=== PATIENT | male | born 1945 | race Caucasian/White ===

== ENCOUNTER 2020-12-14 22:25 | Emergency (ER) | payer MEDICARE, OTHER ==
[~2020-12-14] VITALS: Ht 170.2 cm; Wt 74.8 kg
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
--- NOTE | 2020-12-14 22:44 | NUR ---
EMT @ BEDSIDE FOR EKG
--- NOTE | 2020-12-14 22:44 | NUR ---
MICROSYSTEMS ENGINEER @ BEDSIDE.
[2020-12-14] MEDS ORDERED: TDAP [DIPH/PERTUSSIS/TET] 0.5 ML VIAL IM ONE (22:46)
[2020-12-14 22:57] LABS: BASOPHILS # (AUTO) 0.1 K/uL (0.0-0.2); BASOPHILS % (AUTO) 0.4 % (0.0-2.0); EOSINOPHILS % (AUTO) 0.1 % (0.0-6.0); HEMATOCRIT 44 % (39-51); HEMOGLOBIN 14.3 g/dL (13.5-17.5); LYMPHOCYTES % (AUTO) 14.1 % (20.0-44.0); MEAN CORPUSCULAR HGB CONC 33 g/dl (31.0-36.0); MEAN CORPUSCULAR VOLUME 91 fL (80-96); MONOCYTES # (AUTO) 1.2 K/uL (0.1-1.30); MONOCYTES % (AUTO) 8.6 % (2.0-12.0); NEUTROPHILS # (AUTO) 11.1 K/uL (1.8-8.9); NEUTROPHILS % (AUTO) 76.8 % (43.0-81.0); PLATELET COUNT (AUTO) 236 K/uL (150-450); WHITE BLOOD COUNT (AUTO) 14.4 K/uL (4.3-11.0)
--- NOTE | 2020-12-14 23:05 | NUR ---
URINE COLLECETED AND SENT TO LAB
[2020-12-14] MEDS: TDAP [DIPH/PERTUSSIS/TET] 0.5 ML VIAL IM ONE (23:11)
[2020-12-14 23:16] LABS: ALBUMIN 3.9 g/dL (3.4-5.0); BILIRUBIN,TOTAL 0.4 mg/dL (0.2-1.0); CALCIUM, SERUM 9.1 mg/dL (8.5-10.1); CREATININE 1.9 mg/dL (0.6-1.3); POTASSIUM 4.5 mmol/L (3.5-5.1); TOTAL PROTEIN, SERUM 8.1 g/dL (6.4-8.2)
--- NOTE | 2020-12-14 23:23 | NUR ---
PATIENT TAKEN TO CT
[2020-12-15 03:57] LABS: BILIRUBIN,URINE SMALL (NEGATIVE); COLOR,URINE YELLOW (YELLOW); LEUKOCYTE ESTERASE ,URINE NEGATIVE (NEGATIVE); NITRITE, URINE NEGATIVE (NEGATIVE); PH,URINE 5.5 (5.0-8.0); PROTEIN,URINE TRACE mg/dl (NEGATIVE); UGLUCOSE NEGATIVE (NEGATIVE); UROBILINOGEN,URINE 0.2 EU/dL (0.2)
[2020-12-15 04:03] LABS: BACTERIA,URINE None seen /HPF (None Seen); HYALINE CASTS, URINE Few /LPF (None Seen); MUCUS,URINE Few /LPF (None Seen); SQUAMOUS EPITHELIAL CELL,UR Few /HPF (None Seen); WBC,URINE 0-2 /HPF (0-3)
--- NOTE | 2020-12-15 05:45 | NUR ---
PATIENT A/O X 3, PATIENT AMBULATED WITH UNSTEADY GAIT TO EDGE OF BED AND SAT BACK DOWN. PATIENT PROVIDED WITH FLUIDS PO, TOLERATING WELL. WILL CONTINUE TO MONITOR. VSS.
--- NOTE | 2020-12-15 06:13 | NUR ---
PT IS A, OX3. AMBULATORY W/ STEADY GAITS, PO INTAKE TOLERATED WELL. REPORTED FEELING BETTER AND REQUESTING TO LEAVE. MD MADE AWARE. STABLE FOR D/C PER MD.
--- NOTE | 2020-12-15 06:16 | NUR ---
IV removed. Catheter intact and site benign. Pressure and 4x4 applied to site. No bleeding noted.
--- NOTE | 2020-12-15 06:32 | NUR ---
Patient discharged to home in stable condition. Written and verbal after care instructions given. Patient verbalizes understanding of instruction.
[2020-12-15 06:37] VITALS: BP 122/63
== END 2020-12-15 06:37 | disposition home or self-care (01) ==
LOC: EDBD → ER 22:37
DX: R56.9 Unspecified convulsions (principal); E86.0 Dehydration; F10.129 Alcohol abuse with intoxication, unspecified; Y90.8 Blood alcohol level of 240 mg/100 ml or more
CPT/HCPCS: 36415; 70450; 71045; 80048; 80076; 80307; 80320; 81001; 82962; 85025; 85730; 90471; 90715; 93005; 99285; A6403; G0480

== ENCOUNTER 2020-12-15 12:14 | Emergency (ER) | payer MEDICARE, MEDICAID ==
[~2020-12-15] VITALS: Ht 170.2 cm; Wt 74.8 kg
--- NOTE | 2020-12-15 12:52 | NUR ---
[facility] STATES NO RESIDENT BY THAT NAME
--- NOTE | 2020-12-15 12:54 | NUR ---
CALLED [facility], NO RESIDENT BY THAT NAME
--- NOTE | 2020-12-15 13:01 | NUR ---
REFUSED ACCU CHECK
--- NOTE | 2020-12-15 13:07 | NUR ---
CALLED [facility], NO RECORD OF PATIENT
--- NOTE | 2020-12-15 13:08 | NUR ---
CALLED [facility], NO RECORD OF PATIENT
--- NOTE | 2020-12-15 13:21 | NUR ---
Patient discharged in stable condition. Written and verbal after care instructions given. Patient verbalizes understanding of instruction.
[2020-12-15 13:43] VITALS: BP 131/78
== END 2020-12-15 13:51 | disposition home or self-care (01) ==
LOC: EDBD → ER 12:26
DX: R53.1 Weakness (principal)

== ENCOUNTER 2020-12-16 18:38 | Inpatient (IN) | payer MEDICARE, OTHER ==
[~2020-12-16] VITALS: Ht 170.2 cm; Wt 74.8 kg
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
--- NOTE | 2020-12-17 05:00 | NUR ---
PATINET IN BED SLEEPING, VSS, EASLIY TO AROUSE. WILL CONTINUE TO MONITOR.
[2020-12-17] MEDS ORDERED: LORAZEPAM INJ 2 MG/ML VIAL IVP ONE (08:30)
[2020-12-17] MEDS ORDERED: LORAZEPAM INJ 2 MG/ML VIAL ONE (08:40)
[2020-12-17 08:56] LABS: BASOPHILS % (AUTO) 0.2 % (0.0-2.0); EOSINOPHILS % (AUTO) 0.1 % (0.0-6.0); HEMATOCRIT 41 % (39-51); HEMOGLOBIN 13.9 g/dL (13.5-17.5); LYMPHOCYTES # (AUTO) 1.7 K/uL (0.8-4.8); LYMPHOCYTES % (AUTO) 13.3 % (20.0-44.0); MEAN CORPUSCULAR HGB CONC 34 g/dl (31.0-36.0); MEAN CORPUSCULAR VOLUME 90 fL (80-96); MONOCYTES # (AUTO) 0.9 K/uL (0.1-1.30); MONOCYTES % (AUTO) 6.9 % (2.0-12.0); NEUTROPHILS % (AUTO) 79.5 % (43.0-81.0); PLATELET COUNT (AUTO) 249 K/uL (150-450); RED BLOOD CELL COUNT(AUTO) 4.58 MIL/uL (4.5-6.0); WHITE BLOOD COUNT (AUTO) 12.6 K/uL (4.3-11.0)
--- NOTE | 2020-12-17 08:56 | NUR ---
MOVE SHEET SUBMITTED AND CALLED FOR TELE BED.
[2020-12-17 08:59] LABS: BILIRUBIN,URINE NEGATIVE (NEGATIVE); COLOR,URINE YELLOW (YELLOW); LEUKOCYTE ESTERASE ,URINE NEGATIVE (NEGATIVE); NITRITE, URINE NEGATIVE (NEGATIVE); PH,URINE 5.5 (5.0-8.0); PROTEIN,URINE 30 mg/dl (NEGATIVE); UGLUCOSE NEGATIVE (NEGATIVE); UROBILINOGEN,URINE 0.2 EU/dL (0.2)
[2020-12-17] MEDS ORDERED: IV D5/0.45 NACL 1,000 ML IV ONE (09:00)
[2020-12-17] MEDS ORDERED: Thiamine 100 MG in IV D5W 50 ML IV SCH ×2 (09:00→12:00)
[2020-12-17 09:12] LABS: CALCIUM, SERUM 8.4 mg/dL (8.5-10.1); CARBON DIOXIDE 19 mmol/L (21-32); CHLORIDE 101 mmol/L (98-107); CREATININE 1.9 mg/dL (0.6-1.3); GLUCOSE 174 mg/dL (74-106); POTASSIUM 4.6 mmol/L (3.5-5.1); SODIUM SERUM 137 mmol/L (136-145); UREA NITROGEN, BLOOD 49 mg/dL (7-18)
[2020-12-17 09:15] LABS: BACTERIA,URINE Rare /HPF (None Seen); SQUAMOUS EPITHELIAL CELL,UR Few /HPF (None Seen); WBC,URINE 0-2 /HPF (0-3)
[2020-12-17 09:17] LABS: ALANINE AMINOTRANSFERASE 37 U/L (12-78); ALBUMIN 3.5 g/dL (3.4-5.0); ALCOHOL, BLOOD 45 mg/dL (0-0); ALKALINE PHOSPHATASE 78 U/L (46-116); ASPARTATE AMINOTRANSFERASE 75 U/L (15-37); BILIRUBIN,DIRECT 0.1 mg/dL (0.0-0.2); BILIRUBIN,TOTAL 0.5 mg/dL (0.2-1.0); TOTAL PROTEIN, SERUM 7.7 g/dL (6.4-8.2)
--- NOTE | 2020-12-17 09:50 | NUR ---
covid swab collected and sent to lab.
--- NOTE | 2020-12-17 10:20 | NUR ---
PT GOING TO TELE 111.1
--- NOTE | 2020-12-17 11:13 | NUR ---
REPORT GIVEN TO HEATHER SUTHERLAND FOR JACLYN.
[2020-12-17] MEDS ORDERED: ZOLPIDEM TARTRATE 5 MG TABLET PO PRN (11:30)
[2020-12-17] MEDS ORDERED: Z GUARD REMEDY 2 OZ OINT TP PRN (11:30)
[2020-12-17] MEDS ORDERED: MAG HYDROX/AL HYDROX/SIMETH 30 ML UDC PO PRN (11:30)
[2020-12-17] MEDS ORDERED: MAGNESIUM HYDROXIDE 30 ML UDC PO PRN (11:30)
[2020-12-17] MEDS ORDERED: LORAZEPAM INJ 2 MG/ML VIAL IV PRN (11:30)
[2020-12-17] MEDS ORDERED: ACETAMINOPHEN 325 MG TABLET PO PRN (11:30)
[2020-12-17] MEDS ORDERED: ONDANSETRON HCL/PF 4 MG/2 ML VIAL IVP PRN (11:30)
--- NOTE | 2020-12-17 12:33 | NUR ---
wheeled patient via gurney accompanied by RN and emt in no distress. RN assigned at bedside to assume care.
--- NOTE | 2020-12-17 13:30 | NUR ---
Patient arrived via bed from ER around 1330. Patient AO X 4, able to make needs known, can follow simple commands, no apparent distress noted, breathing even and unlabored. Admitting hospitalist made aware of the patient's arrival. Patient admitting diagnosis ETOH intoxication. Patient's vital signs within normal limits, no complained of facial numbness or weakness, no extremity numbness or weakness at this time. Skin intact, warm to touch, no pallor or cyanosis noted. Patient oriented with use of call lights, use of bed control, use of telephone and tv control, also introduces ENAMEL MACHINE OPERATOR and RN assigned for today, verbalized understanding and gratitude. All belongings written in the inventory list. All needs attended, kept clean and dry, call light left within reach, safety precautions in place, brakes locked, side rails up X 2, will monitor closely for any changes.
[2020-12-17] MEDS: IV NS 0.9% 1,000 ML IV PRN (14:02)
[2020-12-17 17:00] VITALS: BP 116/60
[2020-12-17] MEDS: CHLORDIAZEPOXIDE HCL 25 MG CAPSULE PO SCH (18:03)
--- NOTE | 2020-12-17 18:39 | NUR ---
RN CLOSING NOTES Patient lying in bed, AO X 3-4, respirations even and unlabored, no SOB, no apparent distress noted, denies any pain or discomfort, no s/s of alcohol withdrawal at this time. All medications given per MD order with sips of water, tolerating well. Patient is on NPO diet per MD order, no s/s of hypoglycemia, no change in LOC, no tremors, denies any abdominal pain o discomfort, abdominal bowel sounds present in all quadrants, no grimacing when abdomen palpated. Call light left within reach, kept clean and dry, all needs anticipated, safety precautions in place, brakes locked, side rails up X 2, will endorse to next shift for continuity of care.
--- NOTE | 2020-12-17 19:00 | NUR ---
RN OPENING NOTES RECEIVED REPORT FROM MORNING NURSE. PATIENT IN BED A/O X4. WITH OXYGEN INHALATION @ 3LPM VIA NASAL CANULA SATURATION OF 98%. NO SOB, NO DISTRESS NOTED AT THIS TIME.ON INCIDENT RESPONSE SPECIALIST WITH NORMAL SINUS RHYTHM. WITH IV ACCESS AT AMY G #18 PATENT FLUSHEST WELL NO INFILTRATION NOTED. WITH ONGOING IVF OF PNS @125CC/HR. STILL NPO EXCEPT MEDS. VITAL SIGNS TAKEN AND RECORDED.SAFETY MEASURES IN PLACE AT ALL TIMES, HOB ELEVATED, BED ON LOWEST POSITION AND LOCKED. CALL LIGHT WITHIN REACH. WILL CONTINUE TO MONITOR CLOSELY.
[2020-12-17 21:00] VITALS: BP 102/62
[2020-12-18] VITALS (7 sets, daily range): BP systolic 105–130; BP diastolic 64–80
[2020-12-18] MEDS: IV NS 0.9% 1,000 ML IV PRN (01:24)
[2020-12-18] MEDS ORDERED: DEXTROSE 50%-WATER 50 ML DISP.SYRIN IV PRN (03:00)
--- NOTE | 2020-12-18 05:29 | NUR ---
RN NOTES PATIENT IS CONGESTED SATURATION 95% ON 3L VIA NC. ANAHI SWITCH ENGINEER INFORMED WITH NNO AT THIS TIME.
--- NOTE | 2020-12-18 05:31 | NUR ---
RN NOTES NOTED ANAHI PERSAUD DISCONTINUED IVF PNS. WILL CONTINUE TO MONITOR
[2020-12-18] MEDS: BLOOD SUGAR DIAGNOSTIC 1 EACH STRIP IN SCH ×3 (05:52→17:04)
[2020-12-18 06:30] LABS: BASOPHILS % (AUTO) 0.3 % (0.0-2.0); EOSINOPHILS % (AUTO) 1.7 % (0.0-6.0); HEMATOCRIT 37 % (39-51); HEMOGLOBIN 12.6 g/dL (13.5-17.5); LYMPHOCYTES # (AUTO) 1.3 K/uL (0.8-4.8); MEAN CORPUSCULAR HGB CONC 34 g/dl (31.0-36.0); MEAN CORPUSCULAR VOLUME 90 fL (80-96); MONOCYTES # (AUTO) 0.8 K/uL (0.1-1.30); MONOCYTES % (AUTO) 10.6 % (2.0-12.0); NEUTROPHILS # (AUTO) 5.2 K/uL (1.8-8.9); NEUTROPHILS % (AUTO) 69.4 % (43.0-81.0); PLATELET COUNT (AUTO) 172 K/uL (150-450); RED BLOOD CELL COUNT(AUTO) 4.15 MIL/uL (4.5-6.0); WHITE BLOOD COUNT (AUTO) 7.4 K/uL (4.3-11.0)
--- NOTE | 2020-12-18 06:51 | NUR ---
RN CLOSING NOTES PATIENT IN BED. NO SOB, NO DISTRESS, NO PAIN NOTED AT THIS SHIFT. WITH OXYGEN INHALATION AT 3LPM VIA NC SATURATION OF 95%. WITH IV ACCESS AT AMY G#18 PATENT FLUSHES WELL NO INFILTRATION NOTED.M ON FBI INVESTIGATOR WITH SR AT 80'S. PATIENT STILL ON NPO EXCEPT MEDS. SAFETY MEASURE IN PLACE AT ALL TIMES, HOB ELEVATED, SIDERAILS UP FOR SAFETY, BED ON LOWEST POSITION AND LOCKED. CALL LIGHT WITHIN REACH. NO EPISODE OF ETOH WIDRAWAL THIS SHIFT. ENDORSED.
--- NOTE | 2020-12-18 07:48 | NUR ---
RN OPENING NOTES Patient is awake, alert and oriented x 4, no respiratory distress, no SOB. On 3 liters via NC. Sinus rhythm. NPO except meds. Safety precautions implemented, bed locked in lowest position, call light within reach.
[2020-12-18 08:07] LABS: ALBUMIN 2.9 g/dL (3.4-5.0); BILIRUBIN,DIRECT 0.2 mg/dL (0.0-0.2); BILIRUBIN,TOTAL 0.6 mg/dL (0.2-1.0); CALCIUM, SERUM 7.8 mg/dL (8.5-10.1); CREATININE 1.2 mg/dL (0.6-1.3); MAGNESIUM 2.2 mg/dL (1.8-2.4); PHOSPHORUS 1.8 mg/dL (2.5-4.9); TOTAL PROTEIN, SERUM 6.4 g/dL (6.4-8.2)
[2020-12-18] MEDS: PANTOPRAZOLE 40 MG VIAL IV SCH (08:07)
[2020-12-18] MEDS: CHLORDIAZEPOXIDE HCL 25 MG CAPSULE PO SCH ×2 (08:10→17:03)
[2020-12-18] MEDS: FUROSEMIDE 20 MG/2 ML VIAL IV SCH (08:10)
[2020-12-18] MEDS: THIAMINE HCL 100 MG TABLET PO SCH (09:30)
[2020-12-18] MEDS: HYDROMORPHONE INJ 2 MG/ML DISP.SYRIN IV PRN (09:31)
[2020-12-18] MEDS ORDERED: K PHOS NEUTRAL 250 MG TABLET PO ONE (12:00)
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
[2020-12-18] MEDS: INSULIN REGULAR, HUMAN 100 UNIT/ML 3 ML VIAL SQ PRN (17:10)
--- NOTE | 2020-12-18 18:48 | NUR ---
RN CLOSING NOTE Patient is awake, alert and oriented x 4, no respiratory distress, no SOB. Sinus rhythm. No s/sx of withdrawal episodes noted. Safety precautions implemented, bed locked in lowest position, call light within reach.
--- NOTE | 2020-12-18 19:30 | NUR ---
RN NOTE PT RECEIVED IN BED. PT IS ON 3L OF O2 VIA NC SHOWING NO S/S OF RESP DISTRESS. BREATHING EVEN AND UNLABORED. PT IS A/OX4. NSR ON TELE MONITOR. PT IS AMBULATORY. IV ACCESS NOTED ON LEFT UPPER ARM #18. LINE FLUSHED, PATENT, AND INTACT WITH NO SIGNS OF INFILTRATION. ALL SAFETY MEASURES IMPLEMENTED. CALL LIGHT WITHIN REACH. BED ALARM ON. BED LOCKED AND IN LOWEST POSITION. WILL CONTINUE TO MONITOR AND ASSESS FOR ANY CHANGES.
--- NOTE | 2020-12-18 20:15 | NUR ---
RN NOTE PT HAS MILD FEVER OF 100.3. TYLENOL 650 MG ADMINISTERED AND COOLING MEASURES PROVIDED. WILL CONTINUE TO MONITOR AND RE-ASSESS PT.
--- NOTE | 2020-12-18 21:15 | NUR ---
RN NOTE RE-ASSESSED PT AFTER ADMINISTRATION OF TYLENOL AND COOLING MEASURES. PT TEMPERATURE NOW 99.2. WILL CONTINUE TO MONITOR.
--- NOTE | 2020-12-18 21:35 | NUR ---
RN NOTE REPORT GIVEN TO KOKO SCHUMACHER FOR JACLYN.
--- NOTE | 2020-12-18 22:12 | NUR ---
RN NOTE PT TRANSFERRED TO 328-2 FOR JACLYN.
--- NOTE | 2020-12-18 22:56 | NUR ---
RECEIVED PT @2205 VIA BED ACCOMPANIED BY 2 PERSONNEL. PATIENT IS STABLE. VITAL SIGNS FOLLOW: 105/64, 97.9, 95% O2 SATURATION, 95 BPM, AND 18 RESPIRATIONS. Addendum: 12/19/20 at 0635 by CORBY PERALES RN PT IS AOx3-4. ABLE TO MAKE NEEDS KNOWN. ON 3L/MIN VIA NC AND TOLERATING WELL. NO SOB NOTED. NO S/SX OF RESPIRATORY DISTRESS NOTED.TELE MONITOR DETECTS SINUS RHYTHM WITH RATE OF 85. IV ACCESS IN AMY MIDLINE #18G. SAFETY PRECAUTIONS IN PLACE: BED IN LOWEST, LOCKED POSITION, SIDERAILS UPx2, BRAKES ON. TABLE AND CALL LIGHT WITHIN REACH.
[2020-12-19] MEDS: BLOOD SUGAR DIAGNOSTIC 1 EACH STRIP IN SCH ×4 (00:10→17:40)
--- NOTE | 2020-12-19 06:43 | NUR ---
TONGUE PRESSER CLOSING NOTES PT IN BED, ASLEEP, AWAKENS TO VERBAL STIMULI. PT IS AOx3-4. ABLE TO MAKE NEEDS KNOWN. ON 3L/MIN VIA NC AND TOLERATING WELL. NO SOB NOTED. NO S/SX OF RESPIRATORY DISTRESS NOTED.TELE MONITOR DETECTS SINUS RHYTHM WITH RATE OF 85. IV ACCESS IN AMY MIDLINE #18G. ALL NEEDS MET. PT KEPT CLEAN AND DRY. SAFETY PRECAUTIONS IN PLACE: BED IN LOWEST, LOCKED POSITION, SIDERAILS UPx2, BRAKES ON. TABLE AND CALL LIGHT WITHIN REACH. WILL ENDORSE TO ONCOMING SHIFT FOR JACLYN.
--- NOTE | 2020-12-19 07:30 | NUR ---
BORING MACHINE OPERATOR OPENING NOTES RECEIVED PATIENT ON BED, AWAKE AND AOx3-4. ABLE TO MAKE NEEDS KNOWN. ON 3L/MIN VIA NC AND TOLERATING WELL. NO SOB NOTED. NO S/SX OF RESPIRATORY DISTRESS NOTED. ON TELE MONITOR CURRENTLY READING SINUS RHYTHM AT 80BPM . SAFETY PRECAUTIONS IN PLACE: BED IN LOWEST, LOCKED POSITION, SIDE RAILS UPx2, BRAKES ON. TABLE AND CALL LIGHT WITHIN REACH. WILL CONTINUE TO MONITOR.
[2020-12-19 08:06] LABS: ALBUMIN 2.9 g/dL (3.4-5.0); BILIRUBIN,TOTAL 0.5 mg/dL (0.2-1.0); CALCIUM, SERUM 8.3 mg/dL (8.5-10.1); CREATININE 1.1 mg/dL (0.6-1.3); PHOSPHORUS 2.3 mg/dL (2.5-4.9); POTASSIUM 3.4 mmol/L (3.5-5.1); TOTAL PROTEIN, SERUM 7.2 g/dL (6.4-8.2)
[2020-12-19] MEDS: CHLORDIAZEPOXIDE HCL 25 MG CAPSULE PO SCH ×2 (08:12→17:35)
[2020-12-19] MEDS: FUROSEMIDE 20 MG/2 ML VIAL IV SCH (08:12)
[2020-12-19] MEDS: PANTOPRAZOLE 40 MG VIAL IV SCH (08:12)
[2020-12-19] MEDS ORDERED: PANTOPRAZOLE 40 MG TABLET.DR PO SCH (09:00)
[2020-12-19] MEDS ORDERED: POTASSIUM CHLORIDE 20 MEQ TAB.PRT.SR PO SCH (09:30)
[2020-12-19 09:37] VITALS: BP 113/76
[2020-12-19] MEDS: THIAMINE HCL 100 MG TABLET PO SCH (09:40)
[2020-12-19] MEDS: HYDROMORPHONE INJ 2 MG/ML DISP.SYRIN IV PRN (09:58)
[2020-12-19] MEDS ORDERED: K PHOS NEUTRAL 250 MG TABLET PO ONE (10:00)
[2020-12-19 12:00] VITALS: BP 108/73
[2020-12-19 16:00] VITALS: BP 96/73
[2020-12-19] MEDS: INSULIN REGULAR, HUMAN 100 UNIT/ML 3 ML VIAL SQ PRN (17:34)
--- NOTE | 2020-12-19 18:14 | NUR ---
RN NOTES CALLED [facility] AT [phone] AND GAVE REPORT FOR THE PATIENT TO BE DISCHARGE TO THEIR FACILITY TO NURSE RUBIO.
--- NOTE | 2020-12-19 18:44 | NUR ---
CORE CUTTER AND REAMER CLOSING NOTES PATIENT ON BED, AWAKE AND AO x3-4. ABLE TO MAKE NEEDS KNOWN. ON ROOM AIR TOLERATING WELL. NO SOB NOTED. NO S/SX OF RESPIRATORY DISTRESS NOTED. ON TELE MONITOR CURRENTLY READING SINUS RHYTHM AT 84BPM . SAFETY PRECAUTIONS IN PLACE: BED IN LOWEST, LOCKED POSITION, SIDE RAILS UPx2, BRAKES ON. TABLE AND CALL LIGHT WITHIN REACH. FOR DISCHARGE TO [facility]. REPORT ALREADY GIVEN TO NURSE RUBIO AT [facility]. WILL ENDORSE TO NEXT SHIFT FOR JACLYN.
--- NOTE | 2020-12-19 19:56 | NUR ---
PIZZA DRIVER OPENING NOTES PT AOx3. ABLE TO MAKE NEEDS KNOWN. ON 3L/MIN VIA NASAL CANNULA AND TOLERATING WELL. NO S/SX OF RESPIRATORY DISTRESS NOTED. NO SOB NOTED. IV ACCESS IN AMY #18G. IV IS INTACT, PATENT, AND FLUSHING WELL. SAFETY PRECAUTIONS IN PLACE. TABLE AND CALL LIGHT WITHIN REACH. WILL CONTINUE TO MONITOR. DISCHARGE NOTES PATIENT LEFT WITH 2 EMT'S VIA [employer] [facility]. ID BAND REMOVED. IV REMOVED. TELE MONITOR REMOVED. EDUCATION PROVIDED. DISCHARGE AND BELONGINGS LIST SIGNED. VITAL SIGNS FOLLOW 111/58, 16 RESPIRATION, 89 BPM, 95% AND 99.2 DEGREE.
== END 2020-12-19 20:00 | DRG 896 ==
LOC: ER 18:41 → EDBD 12-17 10:43 → TELE1 12-17 10:43 → TELE 12-18 21:57
PROVIDERS: ADMIT Nurse Practitioner Acute Care; ATTEND Hospitalist
DX: F10.129 Alcohol abuse with intoxication, unspecified (principal); K85.90 Acute pancreatitis without necrosis or infection, unspecified; N17.0 Acute kidney failure with tubular necrosis; G92.8 Other toxic encephalopathy; Y90.2 Blood alcohol level of 40-59 mg/100 ml; Z59.00 Homelessness unspecified; Z86.73 Personal history of transient ischemic attack (TIA), and cerebral infarction without residual deficits; Z20.822 Contact with and (suspected) exposure to COVID-19; E16.2 Hypoglycemia, unspecified; I67.2 Cerebral atherosclerosis; R56.9 Unspecified convulsions
CPT/HCPCS: 36415; 70450-TC; 71045-TC; 80048-TC; 80053-TC; 80061-TC; 80076-TC; 81001; 82962-TC; 83690-TC; 83735-TC; 84100-TC; 85025-TC; 85730-TC; 87081-TC; 97112-TC; 97530-TC; C9113; C9803; G0378; G0480; J1170; J1815; J1940; J2060; J3411; J3490; J7030; J7042; J7060

== ENCOUNTER 2021-01-13 17:50 | Emergency (ER) | payer MEDICARE, OTHER ==
[~2021-01-13] VITALS: Ht 170.2 cm; Wt 74.8 kg
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
--- NOTE | 2021-01-13 18:03 | NUR ---
EMT AT BEDSIDE FOR WOUND CARE
[2021-01-13] MEDS ORDERED: ACET325C7 PO (18:26)
--- NOTE | 2021-01-13 18:42 | NUR ---
REPORT GIVEN TO [facility] THAT PATIENT IS COMING BACK, SPOKE TO SCOTT
[2021-01-13] MEDS ORDERED: BACI1OIN8 TP (18:43)
--- NOTE | 2021-01-13 18:45 | NUR ---
TRANSPORT BACK TO HIS FACILITY IS SCHEDULED FOR 2029 VIA [facility].
--- NOTE | 2021-01-13 21:22 | NUR ---
PT LEFT ON GURNEY WITH 2 EMT AT BEDSIDE ON STABLE CONDITION. PT IS AMBULATORY ON STEADY GAIT.
[2021-01-13 21:23] VITALS: BP 143/86
== END 2021-01-13 21:23 | disposition home or self-care (01) ==
LOC: ER 17:54
DX: S50.812A Abrasion of left forearm, initial encounter (principal); W25.XXXA Contact with sharp glass, initial encounter; Y93.89 Activity, other specified; Y92.89 Other specified places as the place of occurrence of the external cause; Y99.8 Other external cause status
CPT/HCPCS: 99283; A6403

== ENCOUNTER 2021-03-23 13:28 | Emergency (ER) | payer MEDICARE, OTHER ==
[~2021-03-23] VITALS: Ht 180.3 cm; Wt 78.9 kg
[~2021-03-23 13:28] MED LIST: ACET325C7 PO; BACI1OIN8 TP
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
--- NOTE | 2021-03-23 13:50 | NUR ---
PARTNERSHIP MANAGER AT BEDSIDE FOR XRAY.
[2021-03-23] MEDS ORDERED: NAPROXEN 250 MG TABLET PO ONE (14:00)
[2021-03-23] MEDS ORDERED: NAPROXEN 250 MG TABLET ONE (14:04)
[2021-03-23] MEDS ORDERED: NAPR-1192 PO (14:32)
--- NOTE | 2021-03-23 14:36 | NUR ---
CALLED [facility] AND SET UP BLS TRANSPORT TO [facility] ETA 1530
[2021-03-23 15:09] VITALS: BP 142/72
--- NOTE | 2021-03-23 15:09 | NUR ---
REPORT GIVEN TO EMT FOR PT TRANSFER BACK TO [facility].
== END 2021-03-23 15:10 | disposition home or self-care (01) ==
LOC: ER 13:36
DX: S93.401A Sprain of unspecified ligament of right ankle, initial encounter (principal); R56.9 Unspecified convulsions; I10 Essential (primary) hypertension; Z79.1 Long term (current) use of non-steroidal anti-inflammatories (NSAID); Z79.899 Other long term (current) drug therapy; X58.XXXA Exposure to other specified factors, initial encounter; Y93.89 Activity, other specified; Y92.89 Other specified places as the place of occurrence of the external cause; Y99.8 Other external cause status
CPT/HCPCS: 73610-TC; 73630-TC

== ENCOUNTER 2021-05-03 08:48 | Inpatient (IN) | payer MEDICARE, OTHER ==
[~2021-05-03] VITALS: Ht 170.2 cm; Wt 77.1 kg
[~2021-05-03 08:48] MED LIST changes: +NAPR-1192 PO
--- NOTE | 2021-05-03 09:15 | NUR ---
ON AND OFF CP. CP NOW IS 3/10 TIGHTNESS. NON RADIATING. DENIES N/V. IV ACCESS PEST CONTROLLER ASSISTANT, BUT INFILTRATED. PLACED NEW ACCESS ON R AC #20G, INTACT AND PATENT.
[2021-05-03 10:00] LABS: BASOPHILS # (AUTO) 0.1 K/uL (0.0-0.2); EOSINOPHILS % (AUTO) 0.3 % (0.0-6.0); HEMATOCRIT 41 % (39-51); HEMOGLOBIN 13.6 g/dL (13.5-17.5); LYMPHOCYTES # (AUTO) 0.4 K/uL (0.8-4.8); LYMPHOCYTES % (AUTO) 4.7 % (20.0-44.0); MEAN CORPUSCULAR HGB CONC 33 g/dl (31.0-36.0); MEAN CORPUSCULAR VOLUME 89 fL (80-96); MONOCYTES # (AUTO) 0.4 K/uL (0.1-1.30); MONOCYTES % (AUTO) 5.6 % (2.0-12.0); NEUTROPHILS # (AUTO) 7.1 K/uL (1.8-8.9); NEUTROPHILS % (AUTO) 88.4 % (43.0-81.0); PLATELET COUNT (AUTO) 134 K/uL (150-450); RED BLOOD CELL COUNT(AUTO) 4.64 MIL/uL (4.5-6.0)
[2021-05-03 10:34] LABS: CARBON DIOXIDE 25 mmol/L (21-32); CHLORIDE 99 mmol/L (98-107); CREATININE 1.2 mg/dL (0.6-1.3); GLUCOSE 138 mg/dL (74-106); SODIUM SERUM 139 mmol/L (136-145); UREA NITROGEN, BLOOD 23 mg/dL (7-18)
--- NOTE | 2021-05-03 10:35 | NUR ---
MOVE SHEET SUBMITTED AND CALLED FOR TELE BED.
--- NOTE | 2021-05-03 10:36 | NUR ---
COVID TEST DONE. SPECIMEN WAS SENT TO THE LAB
[2021-05-03] MEDS ORDERED: ATOR40TA PO (11:09)
[2021-05-03] MEDS ORDERED: POLY17PO4 PO (11:09)
[2021-05-03] MEDS ORDERED: DOCU-270 PO (11:09)
[2021-05-03] MEDS ORDERED: OMEP20CA15 PO (11:09)
[2021-05-03] MEDS ORDERED: CALC-494 PO (11:09)
--- NOTE | 2021-05-03 12:16 | NUR ---
[facility] CALLED MEAT CUTTING TEACHER PAGED.
--- NOTE | 2021-05-03 13:32 | NUR ---
[facility] CALLED WOOD PRODUCTS MANUFACTURER PAGED AGAIN.
--- NOTE | 2021-05-03 14:20 | NUR ---
GAVE REPORT TO NOAM Moore RN, FOR JACLYN.
--- NOTE | 2021-05-03 14:41 | NUR ---
PATIENT WAS BROUGHT UP TO 327-1, STABLE
--- NOTE | 2021-05-03 14:45 | NUR ---
TELE ADMISSION NOTE PT WAS BROUGHT UP FROM ED BY VERNA ED RN. PT WITH STABLE VITALS. A/A/O X 4. NO S/SX OF ACURE DISTRESS NOTED. NO SOB. BREATHING IS EVEN AND UNLABORED. ORIENTED PT TO UNIT, STAFF AND CALL LIGHT. IV ACCESS RAC#20 PATENT AND INTACT. PT PLACED ON EXTERNAL COMPLAINT ADJUSTER WITH SINUS READING. SAFETY MEASURES IN PLACE WITH BED LOCKED IN LOW POSITION WITH SIDE RAILS UP X 2. CALL LIGHT AND BED SIDE TABLE WITHIN REACH. WILL MONITOR THROUGHOUT SHIFT.
[2021-05-03 16:00] VITALS: BP 137/90
--- NOTE | 2021-05-03 18:16 | NUR ---
RN NOTE ADMITTING DOCTOR, DR. SHIRA BARNETT, MADE AWARE TO INPUT ADMITTING ORDERS AND MEDICATION RECONCILIATION.
--- NOTE | 2021-05-03 18:44 | NUR ---
SCROLL MACHINE OPERATOR CLOSING NOTE PT IS IN BED AWAKE. NO S/SX OF ACUTE DISTRESS NOTED. NO SOB. BREATHING IS EVEN AND UNLABORED.NO C/O PAIN. IV ACCESS RAC#20 PATENT AND INTACT. PT PLACED ON EXTERNAL LADIES ATTENDANT WITH SINUS READING 94. DR. SHIRA BARNETT MADE AWARE TO INPUT ADMITTING ORDERS. SAFETY MEASURES IN PLACE WITH BED LOCKED IN LOW POSITION WITH SIDE RAILS UP X 2. CALL LIGHT AND BED SIDE TABLE WITHIN REACH. WILL ENDORSE CONTINUITY OF CARE TO ONCOMING SHIFT.
[2021-05-03 20:00] VITALS: BP 134/77
[2021-05-03] MEDS ORDERED: ONDANSETRON HCL/PF 4 MG/2 ML VIAL IVP PRN (20:00)
[2021-05-03] MEDS ORDERED: ACETAMINOPHEN 325 MG TABLET PO PRN (20:00)
[2021-05-03] MEDS ORDERED: Z GUARD REMEDY 4 OZ OINT TP PRN (20:00)
--- NOTE | 2021-05-03 20:16 | NUR ---
RN BONE MARROW TRANSPLANT CLOSING NOTES: RECEIVED PATIENT SLEEP IN BED, AROUSABLE TO VERBAL STIMULI, BED IN LOW POSITION CALL LIGHTS WITHIN REACH, NO COMPLAIN OF PAIN AND DISCOMFORT ON ROOM AIR SATURATING WELL, ON TELE MONITOR SR-94 NO SYMPTOMS WAS OBSERVED, WITH IV LINE AT RAC#20 WITH ONGOING NSS @75 ML PER HOUR, PATIENT KEPT CLEAN AND DRY ALL NEEDS MET WILL CONTINUE TO MONITOR
[2021-05-03] MEDS: ENOXAPARIN SODIUM 40 MG/0.4 ML DISP.SYRIN SQ SCH (20:36)
[2021-05-03] MEDS: IV NS 0.9% 1,000 ML IV PRN (20:37)
[2021-05-03] MEDS: ATORVASTATIN 40 MG TABLET PO SCH (22:06)
[2021-05-04] VITALS: BP 138/73
[2021-05-04 04:00] VITALS: BP 156/95
--- NOTE | 2021-05-04 06:19 | NUR ---
SANDBLAST OR SHOTBLAST EQUIPMENT TENDER CLOSING NOTES: PATIENT SLEEP IN BED COMFORTABLY, BED IN LOW POSITION, CALL LIGHTS WITHIN REACH, NO COMPLAIN OF PAIN AND DISCOMFORT AT THIS TIME, PATIENT IS A/OX4 ABLE TO EXPRESS NEEDS, WITH IV LINE AT RAC#20 WITH NSS@75ML PER HOUR INFUSING WELL, PATIENT ON TELE MONITORING SR-75 , ON ROOM AIR SATURATING WELL, PATIENT KEPT CLEAN AND DRY ALL NEEDS MET ENDORSE TO INCOMING SHIFT.
[2021-05-04 07:11] LABS: ALBUMIN 3.6 g/dL (3.4-5.0); BILIRUBIN,TOTAL 0.8 mg/dL (0.2-1.0); CREATININE 0.9 mg/dL (0.6-1.3); MAGNESIUM 1.5 mg/dL (1.8-2.4); PHOSPHORUS 2.8 mg/dL (2.5-4.9); POTASSIUM 3.5 mmol/L (3.5-5.1); TOTAL PROTEIN, SERUM 7.6 g/dL (6.4-8.2)
[2021-05-04 07:18] LABS: THYROID STIMULATING HORMONE 1.349 uIU/mL (0.358-3.74)
[2021-05-04] MEDS: PANTOPRAZOLE 40 MG TABLET.DR PO SCH (07:29)
[2021-05-04 07:41] LABS: BASOPHILS % (AUTO) 0.3 % (0.0-2.0); HEMATOCRIT 42 % (39-51); HEMOGLOBIN 13.9 g/dL (13.5-17.5); LYMPHOCYTES # (AUTO) 0.9 K/uL (0.8-4.8); LYMPHOCYTES % (AUTO) 18.8 % (20.0-44.0); MEAN CORPUSCULAR HGB CONC 33 g/dl (31.0-36.0); MEAN CORPUSCULAR VOLUME 88 fL (80-96); MONOCYTES # (AUTO) 0.6 K/uL (0.1-1.30); MONOCYTES % (AUTO) 12.8 % (2.0-12.0); NEUTROPHILS # (AUTO) 3.3 K/uL (1.8-8.9); NEUTROPHILS % (AUTO) 67.1 % (43.0-81.0); PLATELET COUNT (AUTO) 119 K/uL (150-450); RED BLOOD CELL COUNT(AUTO) 4.79 MIL/uL (4.5-6.0); WHITE BLOOD COUNT (AUTO) 4.8 K/uL (4.3-11.0)
--- NOTE | 2021-05-04 07:42 | NUR ---
SALES PROFESSIONAL BILINGUAL OPENING NOTES PATIENT LAYING IN BED A/O X 4, BED IN LOWEST LOCKED POSITION, CALL LIGHTS WITHIN REACH, NO COMPLAINTS OF PAIN OR DISCOMFORT AT THIS TIME. PATIENT RAC#20 WITH NSS@75ML PER HOUR INFUSING WELL, ON TELE MONITORING SR-83 , ON ROOM AIR SATURATING WELL WITH NO S/S OF RESPIRATORY DISTRESS AT THIS TIME. WILL CONTINUE TO MONITOR.
[2021-05-04] MEDS: POLYETHYLENE GLYCOL 3350 17 GM POWD.PACK PO SCH ×2 (08:24→08:29)
[2021-05-04] MEDS: NICOTINE PATCH (21MG) 21 MG PATCH.TD24 TD SCH ×2 (08:24→08:30)
[2021-05-04] MEDS: DOCUSATE SODIUM 100 MG CAPSULE PO SCH (08:25)
[2021-05-04] MEDS: ASPIRIN EC 81 MG TABLET.DR PO SCH (08:25)
[2021-05-04] MEDS ORDERED: OMEPRAZOLE 20 MG CAPSULE.DR PO SCH (09:00)
[2021-05-04] MEDS ORDERED: NITROGLYCERIN 0.4 MG/TAB BOTTLE SL ONE (09:30)
--- NOTE | 2021-05-04 09:30 | NUR ---
LEAD COATER NOTES PATIENT HAD REMOVED HIS IV ACCESS THIS MORNING AND NEW IV START WAS UNSUCCESSFUL X 3. OTHER HISTORIOGRAPHY PROFESSOR ALSO ATTEMPTED STARTING LINE BUT NOT ABLE TO. SCHEDULED IV MEDICATIONS UNABLE TO BE ADMINISTERED THIS MORNING. PATIENT TRANSPORTED TO ASSEMBLER ERECTOR, ASSEMBLER ERECTOR STAFF STATED HE WOULD PLACE IV ACCESS. ALL CONSENTS SIGNED FOR PROCEDURE.
[2021-05-04] MEDS: Magnesium 1GM/D5W 100ML PREMIX 100 ML IV SCH ×3 (10:30→13:24)
[2021-05-04] MEDS ORDERED: IV NS 0.9% 250 ML IV ONE (10:58)
[2021-05-04] MEDS ORDERED: IOHEXOL-350 100 ML VIAL IV ONE (10:58)
[2021-05-04] MEDS: METOPROLOL TARTRATE INJ 5 MG/5 ML AMPUL IVP PRN ×2 (11:25→11:30)
[2021-05-04] MEDS ORDERED: METOPROLOL TARTRATE INJ 5 MG/5 ML AMPUL ONE (11:31)
[2021-05-04 11:40] VITALS: BP 148/92
--- NOTE | 2021-05-04 11:46 | NUR ---
CLOTHING SORTER RN, PT REFUSED CTA HEART MID PROCEDURE. 10MG OF METOPROLOL GIVEN, PT STATES "HE DOES NOT WANT ANY MORE MEDICATIONS OR TO COMPLETE THE SCAN." VSS. BP 142/82, HR 82, O2 95%. PT TAKEN BACK TO ROOM, REPORT ENDORSED TO KOKO SHARPE.
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
--- NOTE | 2021-05-04 11:58 | NUR ---
CCTA IN PROGRESS PT ON TABLE REFUSED METOPROLOL (HR 91), PT UNABLE TO COMPLETE AN ADEQUATE BREATH HOLD, AND ONCE CT TABLE WAS ISOCENTERED THE PT REFUSED THE EXAM IN IT'S ENTIRETY.
[2021-05-04] MEDS ORDERED: Magnesium 1GM/D5W 100ML PREMIX 100 ML IV SCH (13:30)
--- NOTE | 2021-05-04 19:00 | NUR ---
FEED RESEARCH TECHNICIAN CLOSING NOTES PATIENT LAYING IN BED A/O X 4, BED IN LOWEST LOCKED POSITION, CALL LIGHTS WITHIN REACH, NO COMPLAINTS OF PAIN OR DISCOMFORT AT THIS TIME. PATIENT RAC#20 WITH NSS@75ML PER HOUR INFUSING WELL, ON TELE MONITOR READING NS, ON ROOM AIR SATURATING WELL WITH NO S/S OF RESPIRATORY DISTRESS AT THIS TIME. ORDER PLACED TODAY FOR ATIVAN PO X 1 DOSE PRIOR TO NEXT SCHEDULED CT. WILL ENDORSE TO RICE FIELD WORKER FOR JACLYN.
--- NOTE | 2021-05-04 19:15 | NUR ---
MS RN OPENING NOTES RECEIVED REPORT AT PATIENT'S BEDSIDE. PATIENT LAYING IN BED A/O X 4. SPEECH CLEAR, PATIENT COMMUNICATIVE. PATIENT IN NAD AND STABLE AT THIS TIME. RR EVEN AND UNLABORED. IV ACCESS TO R AC 20 GAUGE INFUSING NS @ 75ML/HR WITHOUT COMPLICATION -- NO INFILTRATION.ERYTHEMA TO SITE, DRESSING CDI. DISCUSSED PLAN OF CARE WITH PATIENT INCLUDING RE-APPROACH FOR CT WITH ANGIOGRAM IN AM AND PRN ATIVAN PER ODER AVAILABLE PRIOR TO PROCEDURE. PATIENT VERBALIZES UNDERSTANDING AND AGREEABLE. DISCUSSED NPO STATUS AFTER MIDNIGHT FOR PRE-PROCEDURE, PATIENT VERBALIZES UNDERSTANDING. SAFETY AND ASPIRATION PRECAUTIONS IN PLACE: BED IN LOW/LOCKED POSITION, SIDE RAILS UP X2, HOB ELEVATED TO SEMI-CASTILLO'S POSITION. PATIENT DEMONSTRATES ABILITY TO USE CALL LIGHT AND VERBALIZE NEEDS EFFECTIVELY. CALL LIGHT AND FREQUENTLY USED ITEMS WITHIN REACH.
[2021-05-04 20:00] VITALS: BP 133/70
[2021-05-04] MEDS: ATORVASTATIN 40 MG TABLET PO SCH (21:37)
[2021-05-04] MEDS: ENOXAPARIN SODIUM 40 MG/0.4 ML DISP.SYRIN SQ SCH (21:37)
--- NOTE | 2021-05-05 05:55 | NUR ---
MS RN CLOSING NOTES PATIENT LAYING IN BED A/O X 4, WATCHING TV. SPEECH CLEAR, PATIENT COMMUNICATIVE. PATIENT IN NAD AND STABLE AT THIS TIME. RR EVEN AND UNLABORED. IV ACCESS TO R AC 20 GAUGE INFUSING NS @ 75ML/HR WITHOUT COMPLICATION -- NO INFILTRATION.ERYTHEMA TO SITE, DRESSING CDI. PATIENT NPO SINCE MIDNIGHT. PATIENT IS INCONTINENT OF STOOL THIS SHIFT. MOSTLY INCONTINENT OF URINE THIS SHIFT WELL, USES URINAL INTERMITTENTLY. DENIES PAIN. SAFETY AND ASPIRATION PRECAUTIONS IN PLACE: BED IN LOW/LOCKED POSITION, SIDE RAILS UP X2, HOB ELEVATED TO SEMI-CASTILLO'S POSITION. PATIENT DEMONSTRATES ABILITY TO USE CALL LIGHT AND VERBALIZE NEEDS EFFECTIVELY. CALL LIGHT AND FREQUENTLY USED ITEMS WITHIN REACH.
--- NOTE | 2021-05-05 06:47 | NUR ---
DIRECTOR AIRPORT OPERATIONS CALLED FLOOR TO NOTIFY THIS NURSE SHE WAS UNABLE TO OBTAIN BLOOD DRAW FROM PATIENT D/T DIFFICULT STICK.
[2021-05-05] MEDS: IV NS 0.9% 1,000 ML IV PRN (06:49)
[2021-05-05] MEDS: PANTOPRAZOLE 40 MG TABLET.DR PO SCH (06:50)
--- NOTE | 2021-05-05 07:37 | NUR ---
RN NOTES PATIENT RESTING IN BED, EYES CLOSED, ABLE TO BE AWAKENED. NOT IN ACUTE DISTRESS, ON ROOM AIR. FOR CTCA TODAY, WILL F/U W/ RADIOLOGY/DRY KILN BURNER FOR PROCEDURE. SAFETY MEASURES IN PLACE. WILL CONTINUE TO MONITOR.
--- NOTE | 2021-05-05 07:42 | NUR ---
RN NOTES OKAY FOR PATIENT TO EAT TODAY.
[2021-05-05] MEDS: ASPIRIN EC 81 MG TABLET.DR PO SCH (08:04)
[2021-05-05] MEDS: DOCUSATE SODIUM 100 MG CAPSULE PO SCH (08:04)
[2021-05-05] MEDS: POLYETHYLENE GLYCOL 3350 17 GM POWD.PACK PO SCH (08:08)
[2021-05-05] MEDS: NICOTINE PATCH (21MG) 21 MG PATCH.TD24 TD SCH (08:08)
[2021-05-05 08:20] VITALS: BP 147/89
[2021-05-05] MEDS ORDERED: LORAZEPAM 1 MG TABLET PO PRN (09:00)
--- NOTE | 2021-05-05 10:50 | NUR ---
RN NOTES PATIENT SEEN BY DR. GARCIA AND DR. PABLO TODAY; CLEARED BY CARDIO FOR D/C.
--- NOTE | 2021-05-05 12:26 | NUR ---
RN NOTES CALLED [facility] ([phone]) TO GIVE PATIENT REPORT BUT NO RESPONSE; LEFT MESSAGE VIA VOICEMAIL. WILL CALL AGAIN.
--- NOTE | 2021-05-05 13:34 | NUR ---
RN NOTES ATTEMPTED TO GIVE REPORT TO [facility] AGAIN BUT NO RESPONSE; LEFT VOICE MESSAGE.
--- NOTE | 2021-05-05 15:23 | NUR ---
RN NOTES PATIENT SEEN BY DR. GARCIA TODAY W/ ORDER FOR DISCHARGE BACK TO [facility] UPON CARDIAC CLEARANCE. DISCHARGE INSTRUCTION AND EDUCATION PROVIDED TO PATIENT; LEFT MESSAGE TO [facility], UNABLE TO SPEAK W/ RN DYE PENETRANT TESTING TECHNICIAN. PER CYANIDE POT TENDER, FACILITY WILL TAKE PATIENT BACK. PATIENT UNABLE TO SIGN FORMS BUT PROVIDED VERBAL CONSENT; ALL BELONGINGS ACCOUNTED FOR. NAME ARMBAND AND IV LINE REMOVED. BEDSIDE ENDORSEMENT GIVEN TO PERSONAL INVESTMENT ADVISER. PATIENT PICKED UP VIA GURNEY. CHARGE NURSE AND MD AWARE OF DISCHARGE. Addendum: 05/05/21 at 1528 by REGULO TURNER RN RN NOTES NO SKIN ISSUE NOTED.
== END 2021-05-05 15:25 | DRG 195 ==
LOC: ER 08:53 → TELE 14:10 → MED 05-04 10:16
PROVIDERS: ADMIT Nurse Practitioner Acute Care; ATTEND Nurse Practitioner Acute Care
DX: R09.1 Pleurisy (principal); D69.6 Thrombocytopenia, unspecified; G40.909 Epilepsy, unspecified, not intractable, without status epilepticus; K21.9 Gastro-esophageal reflux disease without esophagitis; I10 Essential (primary) hypertension; B35.1 Tinea unguium; Z86.11 Personal history of tuberculosis; F17.210 Nicotine dependence, cigarettes, uncomplicated; Z72.89 Other problems related to lifestyle; Z53.29 Procedure and treatment not carried out because of patient's decision for other reasons; Z20.822 Contact with and (suspected) exposure to COVID-19
CPT/HCPCS: 36415; 71045-TC; 80048-TC; 80053-TC; 80061-TC; 83735-TC; 84100-TC; 84443-TC; 84484-TC; 85025-TC; 87081-TC; 93307-TC; C9803; G0378; J1650; J3475; J3490; J7030; J7050; Q9967

== ENCOUNTER 2021-08-11 06:36 | Emergency (ER) | payer MEDICARE, OTHER ==
[~2021-08-11] VITALS: Ht 167.6 cm; Wt 79.4 kg
[~2021-08-11 06:36] MED LIST changes: -ACET325C7 PO; +ATOR40TA PO; -BACI1OIN8 TP; +CALC-494 PO; +DOCU-270 PO; -NAPR-1192 PO; +OMEP20CA15 PO; +POLY17PO4 PO
--- NOTE | 2021-08-11 06:43 | NUR ---
CONNIE FROM RESIDENTIAL, C/O UPPER RIGHT ABDOMINAL PAIN SINCE LAST NIGHT. -N/V/D. PATIENT ALERT AND ORIENTED X3. AMBULATORY WITH NON LABORED BREATHING IN BED 09 ON MONITOR AWAITING MD MARY.
--- NOTE | 2021-08-11 07:09 | NUR ---
20G IV ESTABLISHED AT [facility]. BLOOD DRAWN AND SENT TO LAB.
[2021-08-11 07:13] LABS: BASOPHILS % (AUTO) 0.3 % (0.0-2.0); EOSINOPHILS % (AUTO) 1.1 % (0.0-6.0); HEMATOCRIT 45 % (39-51); HEMOGLOBIN 15.3 g/dL (13.5-17.5); LYMPHOCYTES # (AUTO) 1.1 K/uL (0.8-4.8); LYMPHOCYTES % (AUTO) 19.3 % (20.0-44.0); MEAN CORPUSCULAR HGB CONC 34 g/dl (31.0-36.0); MEAN CORPUSCULAR VOLUME 94 fL (80-96); MONOCYTES # (AUTO) 0.6 K/uL (0.1-1.30); MONOCYTES % (AUTO) 9.6 % (2.0-12.0); NEUTROPHILS # (AUTO) 4.1 K/uL (1.8-8.9); NEUTROPHILS % (AUTO) 69.7 % (43.0-81.0); PLATELET COUNT (AUTO) 201 K/uL (150-450); RED BLOOD CELL COUNT(AUTO) 4.83 MIL/uL (4.5-6.0); WHITE BLOOD COUNT (AUTO) 5.9 K/uL (4.3-11.0)
--- NOTE | 2021-08-11 07:25 | NUR ---
URINE COLLECTED AND SENT TO LAB
[2021-08-11 07:38] LABS: CALCIUM, SERUM 9.7 mg/dL (8.5-10.1); CARBON DIOXIDE 27 mmol/L (21-32); CHLORIDE 104 mmol/L (98-107); CREATININE 1.2 mg/dL (0.6-1.3); GLUCOSE 95 mg/dL (74-106); SODIUM SERUM 143 mmol/L (136-145); UREA NITROGEN, BLOOD 19 mg/dL (7-18)
[2021-08-11 07:43] LABS: ALANINE AMINOTRANSFERASE 36 U/L (12-78); ALBUMIN 4.5 g/dL (3.4-5.0); ALKALINE PHOSPHATASE 67 U/L (46-116); ASPARTATE AMINOTRANSFERASE 45 U/L (15-37); BILIRUBIN,DIRECT 0.2 mg/dL (0.0-0.2); BILIRUBIN,TOTAL 0.8 mg/dL (0.2-1.0); LIPASE 106 U/L (73-393); TOTAL PROTEIN, SERUM 8.5 g/dL (6.4-8.2)
--- NOTE | 2021-08-11 07:43 | NUR ---
WARM BLANKET PROVIDED FOR COMFORT. WATCHING TV AT THIS TIME.
[2021-08-11] MEDS ORDERED: IOHEXOL-300 100 ML VIAL IV ONE (07:51)
[2021-08-11] MEDS ORDERED: IV NS 0.9% 250 ML IV ONE (07:51)
--- NOTE | 2021-08-11 08:05 | NUR ---
PT TAKEN TO RADIOLOGY VIA [facility].
[2021-08-11 08:12] LABS: BILIRUBIN,URINE SMALL (NEGATIVE); COLOR,URINE YELLOW (YELLOW); LEUKOCYTE ESTERASE ,URINE TRACE (NEGATIVE); NITRITE, URINE NEGATIVE (NEGATIVE); PROTEIN,URINE 100 mg/dl (NEGATIVE); UGLUCOSE NEGATIVE (NEGATIVE); UROBILINOGEN,URINE 0.2 EU/dL (0.2)
--- NOTE | 2021-08-11 08:12 | NUR ---
PT RETURNED FROM RADIOLOGY.
--- NOTE | 2021-08-11 08:17 | NUR ---
URINAL PROVIDED. NO COMPLAINT OF PAIN AT THIS TIME.
[2021-08-11 08:39] LABS: BACTERIA,URINE 1+ /HPF (None Seen)
--- NOTE | 2021-08-11 09:24 | NUR ---
ATE BREAKFAST IN BED. NO COMPLAINT OF NAUSEA/VOMITING.
--- NOTE | 2021-08-11 10:25 | NUR ---
[facility] CALLED FOR TRANSPORT ETA 1200 PER YECENIA.
[2021-08-11] MEDS ORDERED: CEPH500T PO (10:58)
--- NOTE | 2021-08-11 12:08 | NUR ---
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 IV LINE REMOVED, NO BLEEDING NOTED.
[2021-08-11 12:09] VITALS: BP 135/80
--- NOTE | 2021-08-11 12:10 | NUR ---
Patient discharged to home in stable condition. Written and verbal after care instructions given. Patient verbalizes understanding of instruction.
== END 2021-08-11 12:10 ==
LOC: ER 06:40
DX: N39.0 Urinary tract infection, site not specified (principal); R10.31 Right lower quadrant pain; I10 Essential (primary) hypertension; K21.9 Gastro-esophageal reflux disease without esophagitis; Z86.69 Personal history of other diseases of the nervous system and sense organs; F17.200 Nicotine dependence, unspecified, uncomplicated; Z79.899 Other long term (current) drug therapy
CPT/HCPCS: 36415; 74177; 80048; 80076; 81001; 83690; 85025; 85730; 87086; 99285; J7050; Q9967

== ENCOUNTER 2021-09-29 06:38 | Emergency (ER) | payer MEDICARE, OTHER ==
[~2021-09-29] VITALS: Ht 177.8 cm; Wt 79.4 kg
[~2021-09-29 06:38] MED LIST changes: +CEPH500T PO
--- NOTE | 2021-09-29 06:50 | NUR ---
[id number] FROM [facility] C/O ABD PAIN AND FREQUENT URINATION X 3 DAYS. PATIENT IS AAOX4. ABLE TO AMBULATE WITH ASSISTANCE TO THE BATHROOM. -CP, -SOB. PLACED COMFORTABLY IN BED. VITALS CHECKED.
--- NOTE | 2021-09-29 06:56 | NUR ---
URINE SPECIMEN SENT TO LAB
--- NOTE | 2021-09-29 07:28 | NUR ---
REPORT GIVEN TO KOKO BARKLEY.
[2021-09-29] MEDS ORDERED: IV NS 0.9% 1,000 ML BAG IV ONE (07:30)
[2021-09-29] MEDS ORDERED: KETOROLAC TROMETHAMINE INJ 30 MG/ML VIAL IV ONE (07:30)
--- NOTE | 2021-09-29 07:34 | NUR ---
IV ESTABLISHED R HAND 20G. LABS DRAWN AND COLLECTED AT BEDSIDE.
[2021-09-29] MEDS ORDERED: KETOROLAC TROMETHAMINE 15 MG/ML VIAL ONE (07:37)
[2021-09-29 07:51] LABS: BASOPHILS % (AUTO) 0.2 % (0.0-2.0); EOSINOPHILS % (AUTO) 0.4 % (0.0-6.0); HEMATOCRIT 40 % (39-51); HEMOGLOBIN 13.2 g/dL (13.5-17.5); LYMPHOCYTES % (AUTO) 5.2 % (20.0-44.0); MEAN CORPUSCULAR HGB CONC 33 g/dl (31.0-36.0); MEAN CORPUSCULAR VOLUME 92 fL (80-96); MONOCYTES # (AUTO) 1.9 K/uL (0.1-1.30); MONOCYTES % (AUTO) 9.6 % (2.0-12.0); NEUTROPHILS # (AUTO) 16.7 K/uL (1.8-8.9); NEUTROPHILS % (AUTO) 84.6 % (43.0-81.0); PLATELET COUNT (AUTO) 202 K/uL (150-450); RED BLOOD CELL COUNT(AUTO) 4.33 MIL/uL (4.5-6.0); WHITE BLOOD COUNT (AUTO) 19.8 K/uL (4.3-11.0)
[2021-09-29 08:02] LABS: BILIRUBIN,URINE NEGATIVE (NEGATIVE); COLOR,URINE YELLOW (YELLOW); LEUKOCYTE ESTERASE ,URINE MODERATE (NEGATIVE); NITRITE, URINE NEGATIVE (NEGATIVE); PH,URINE 5.5 (5.0-8.0); PROTEIN,URINE TRACE mg/dl (NEGATIVE); UGLUCOSE NEGATIVE (NEGATIVE); UROBILINOGEN,URINE 0.2 EU/dL (0.2)
[2021-09-29 08:07] LABS: CALCIUM, SERUM 8.8 mg/dL (8.5-10.1); CREATININE 1.3 mg/dL (0.6-1.3); POTASSIUM 4.1 mmol/L (3.5-5.1)
[2021-09-29 08:14] LABS: BACTERIA,URINE Few /HPF (None Seen); SQUAMOUS EPITHELIAL CELL,UR Rare /HPF (None Seen)
[2021-09-29 08:19] LABS: ALBUMIN 3.5 g/dL (3.4-5.0); BILIRUBIN,DIRECT 0.2 mg/dL (0.0-0.2); BILIRUBIN,TOTAL 0.7 mg/dL (0.2-1.0); TOTAL PROTEIN, SERUM 7.3 g/dL (6.4-8.2)
--- NOTE | 2021-09-29 08:57 | NUR ---
BIRD TENDER AT BEDSIDE FOR BLOOD DRAW
[2021-09-29] MEDS ORDERED: CEFTRIAXONE 1 G in IV D5W 50 ML IV ONE (09:00)
[2021-09-29] MEDS ORDERED: CEPH500T PO (10:35)
[2021-09-29] MEDS ORDERED: POLY17PO4 PO (10:35)
--- NOTE | 2021-09-29 10:40 | NUR ---
CALLED [facility] AND SET UP BLS TRANSPORT ETA 1100
--- NOTE | 2021-09-29 11:07 | NUR ---
REPORT GIVEN TO [facility]
--- NOTE | 2021-09-29 11:35 | NUR ---
TRANSPORTATION ARRIVED REPORT GIVEN, PT BEING TRASNPORTED BACK TO FACILITY IN STABLE CONDITION.
--- NOTE | 2021-09-29 11:36 | NUR ---
PICKED UP BY TRANSPORT IN STABLE CONDITION
--- NOTE | 2021-09-29 11:37 | NUR ---
IV removed. Catheter intact and site benign. Pressure and 4x4 applied to site. No bleeding noted.Patient discharged to home in stable condition. Written and verbal after care instructions given. Patient verbalizes understanding of instruction.
[2021-09-29 11:42] VITALS: BP 123/75
== END 2021-09-29 11:42 | disposition home or self-care (01) ==
LOC: ER 06:40
DX: N39.0 Urinary tract infection, site not specified (principal); R30.0 Dysuria; D72.829 Elevated white blood cell count, unspecified; K59.00 Constipation, unspecified; K57.30 Diverticulosis of large intestine without perforation or abscess without bleeding; I10 Essential (primary) hypertension; E78.5 Hyperlipidemia, unspecified; Z86.69 Personal history of other diseases of the nervous system and sense organs; F17.200 Nicotine dependence, unspecified, uncomplicated; Z79.899 Other long term (current) drug therapy
CPT/HCPCS: 99285; 74176; 96365; 96361; 96375; 85025; 80048; 87077; 87040 ×2; 87086; 83690; 80076; 87186; 81001; 36415; J0696; J7060; J7030; J1885

== ENCOUNTER 2021-10-11 04:09 | Emergency (ER) | payer MEDICARE, OTHER ==
--- NOTE | 2021-10-11 10:31 | NUR ---
PT STATES THAT HE WAS ABLE TO PASS A LITTLE BIT OF STOOL EARLY IN AM TODAY. REQUESTS FOR FOOD.
[2021-10-11] MEDS ORDERED: DOCU-141 PO (10:36)
[2021-10-11] MEDS ORDERED: POLY17PO4 PO (10:36)
--- NOTE | 2021-10-11 10:37 | NUR ---
[facility] CALLED FOR TRANSPORT ETA 60 MINS PER JENA.
--- NOTE | 2021-10-11 12:01 | NUR ---
Patient discharged to [facility] in stable condition, accompanied by 2 choir member. Written and verbal after care instructions given. Patient verbalizes understanding of instruction.
[2021-10-11 12:03] VITALS: BP 143/76
== END 2021-10-11 12:04 ==
LOC: ER 04:09
DX: K59.00 Constipation, unspecified (principal); I10 Essential (primary) hypertension; E78.5 Hyperlipidemia, unspecified; F17.200 Nicotine dependence, unspecified, uncomplicated; Z79.899 Other long term (current) drug therapy
CPT/HCPCS: 74018

== ENCOUNTER 2021-12-28 10:37 | Inpatient (IN) | payer MEDICARE, OTHER ==
[~2021-12-28] VITALS: Ht 177.8 cm; Wt 80.7 kg
[~2021-12-28 10:37] MED LIST changes: +DOCU-141 PO
--- NOTE | 2021-12-28 10:45 | NUR ---
hooked to monitor EKG done by tech
--- NOTE | 2021-12-28 10:45 | NUR ---
MODESTA DAVIS From [facility] "was sitting down watching TV started havin CP-sharp like, given 1 spray NTG and asa pain now better EKG ST
--- NOTE | 2021-12-28 10:46 | NUR ---
Established IV line 20 LAC infusing ,
--- NOTE | 2021-12-28 10:46 | NUR ---
blood sample obtained sent to lab
--- NOTE | 2021-12-28 11:00 | NUR ---
technical sales consultant at bed side
--- NOTE | 2021-12-28 11:12 | NUR ---
COVID SWAB DONE AND SENT TO LAB
[2021-12-28 11:22] LABS: BASOPHILS % (AUTO) 0.5 % (0.0-2.0); EOSINOPHILS % (AUTO) 0.2 % (0.0-6.0); HEMATOCRIT 44 % (39-51); HEMOGLOBIN 14.3 g/dL (13.5-17.5); LYMPHOCYTES # (AUTO) 0.7 K/uL (0.8-4.8); MEAN CORPUSCULAR HGB CONC 33 g/dl (31.0-36.0); MEAN CORPUSCULAR VOLUME 90 fL (80-96); MONOCYTES # (AUTO) 0.4 K/uL (0.1-1.30); MONOCYTES % (AUTO) 5.8 % (2.0-12.0); NEUTROPHILS # (AUTO) 5.8 K/uL (1.8-8.9); NEUTROPHILS % (AUTO) 83.5 % (43.0-81.0); PLATELET COUNT (AUTO) 125 K/uL (150-450); RED BLOOD CELL COUNT(AUTO) 4.85 MIL/uL (4.5-6.0); WHITE BLOOD COUNT (AUTO) 6.9 K/uL (4.3-11.0)
[2021-12-28 11:31] LABS: CARBON DIOXIDE 28 mmol/L (21-32); CHLORIDE 100 mmol/L (98-107); CREATININE 1.3 mg/dL (0.6-1.3); GLUCOSE 114 mg/dL (74-106); POTASSIUM 4.1 mmol/L (3.5-5.1); SODIUM SERUM 142 mmol/L (136-145); UREA NITROGEN, BLOOD 17 mg/dL (7-18)
[2021-12-28] MEDS ORDERED: IV NS 0.9% 250 ML IV ONE (11:46)
[2021-12-28] MEDS ORDERED: CT SWABBABLE VALVE TRANS SET 1 EA INFUS.SET MC ONE (11:46)
[2021-12-28] MEDS ORDERED: IOHEXOL-350 100 ML VIAL IV ONE (11:46)
--- NOTE | 2021-12-28 11:52 | NUR ---
PATIENT TAKEN TO CT VIA PHILLIP
--- NOTE | 2021-12-28 13:13 | NUR ---
PHLEBETOMIST AT BEDSIDE FOR 2ND TROPONIN BLOOD DRAW
[2021-12-28] MEDS ORDERED: MAGNESIUM HYDROXIDE 30 ML UDC PO PRN (13:30)
[2021-12-28] MEDS ORDERED: ENOXAPARIN SODIUM 40 MG/0.4 ML DISP.SYRIN SQ SCH (13:30)
[2021-12-28] MEDS ORDERED: ZOLPIDEM TARTRATE 5 MG TABLET PO PRN (13:30)
[2021-12-28] MEDS ORDERED: Z GUARD REMEDY 4 OZ OINT TP PRN (13:30)
[2021-12-28] MEDS ORDERED: ACETAMINOPHEN 325 MG TABLET PO PRN (13:30)
[2021-12-28] MEDS ORDERED: ONDANSETRON HCL/PF 4 MG/2 ML VIAL IVP PRN (13:30)
[2021-12-28] MEDS ORDERED: ENOXAPARIN SODIUM 40 MG/0.4 ML DISP.SYRIN SQ ONE (15:19)
[2021-12-28] MEDS ORDERED: METOPROLOL TARTRATE 25 MG TABLET PO SCH (17:00)
[2021-12-28] MEDS ORDERED: CALCIUM CARBONATE 500 MG TAB.CHEW ONE (17:26)
[2021-12-28] MEDS ORDERED: METOPROLOL TARTRATE 25 MG TABLET ONE (17:26)
[2021-12-28] MEDS: CALCIUM CARBONATE (1250) 500 MG TABLET PO SCH (17:30)
--- NOTE | 2021-12-28 18:10 | NUR ---
[id number] per medical assistant supervisor
--- NOTE | 2021-12-28 18:18 | NUR ---
REPORT GIVEN TO ISAAC SUTHERLAND [id number] FOR JACLYN
--- NOTE | 2021-12-28 19:30 | NUR ---
TRAVEL SALES CONSULTANTROUTE SALES TRAINEE NOTE PT TRANSPORTED VIA GURNEY TO UNIT AT 1840. PT FROM [facility] ADMITTED TO TELE FROM ER UNDER DR RAUSCH FOR ADMITTING DX CHEST PAIN. A/O X3 AND ABLE TO MAKE NEEDS KNOWN, EPISODES OF FORGETFULNESS. PT STABLE ON ROOM AIR. NO SOB OR S/S OF RESPIRATORY DISTRESS. BREATHING EVEN AND UNLABORED. ON EXTERNAL PLATFORM MAN READING SR 70 BPM. PT DENIES PAIN OR DISCOMFORT AT THIS TIME. SKIN IS INTACT, NOTED WITH BLE DRY SKIN AND LEFT ANKLE CALLUS. IV ACCESS LAC 20G, INTACT AND PATENT. ORIENTED TO UNIT, STAFF, AND ROOM. BELONGINGS ACCOUNTED FOR AND BELONGINGS LIST SIGNED. PT CLEANED AND LINEN CHANGE DONE. SAFETY PRECAUTIONS IN PLACE. BED IN LOWEST LOCKED POSITION, HOB ELEVATED, SIDE RAILS UP X2, AND CALL LIGHT AND TABLE WITHIN REACH. ALL NEEDS MET AT THIS TIME.
[2021-12-28 20:00] VITALS: BP 147/98
[2021-12-28] MEDS: IV 1/2NS 1000 ML 1,000 ML IV PRN (21:26)
[2021-12-28] MEDS: ATORVASTATIN 40 MG TABLET PO SCH (21:26)
[2021-12-29] VITALS: BP 137/83
[2021-12-29 04:00] VITALS: BP 153/90
[2021-12-29 06:19] LABS: BASOPHILS % (AUTO) 0.3 % (0.0-2.0); EOSINOPHILS % (AUTO) 0.7 % (0.0-6.0); HEMATOCRIT 42 % (39-51); HEMOGLOBIN 13.9 g/dL (13.5-17.5); LYMPHOCYTES % (AUTO) 18.6 % (20.0-44.0); MEAN CORPUSCULAR HGB CONC 33 g/dl (31.0-36.0); MEAN CORPUSCULAR VOLUME 89 fL (80-96); MONOCYTES # (AUTO) 0.5 K/uL (0.1-1.30); MONOCYTES % (AUTO) 10.1 % (2.0-12.0); NEUTROPHILS # (AUTO) 3.7 K/uL (1.8-8.9); NEUTROPHILS % (AUTO) 70.3 % (43.0-81.0); PLATELET COUNT (AUTO) 94 K/uL (150-450); WHITE BLOOD COUNT (AUTO) 5.2 K/uL (4.3-11.0)
--- NOTE | 2021-12-29 06:39 | NUR ---
COMMERCIAL PLUMBER CLOSING NOTE PT AWAKE IN BED. A/O X3 AND ABLE TO MAKE NEEDS KNOWN, EPISODES OF FORGETFULNESS. PT STABLE ON ROOM AIR. NO SOB OR S/S OF RESPIRATORY DISTRESS. BREATHING EVEN AND UNLABORED. ON EXTERNAL SUPERVISOR DOG LICENSE OFFICER READING SR 81 BPM. PT DENIES PAIN OR DISCOMFORT AT THIS TIME. IV ACCESS LAC 20G, INTACT AND PATENT, RUNNING 1/2 NS @ 75 ML/HR. ALL DUE MEDS GIVEN ORDERED. SAFETY PRECAUTIONS IN PLACE AT ALL TIMES. BED IN LOWEST LOCKED POSITION, HOB ELEVATED, SIDE RAILS UP X2, AND CALL LIGHT AND TABLE WITHIN REACH. ALL NEEDS MET AT THIS TIME AND WILL ENDORSE TO ONCOMING NURSE FOR JACLYN.
[2021-12-29 06:52] LABS: ALBUMIN 3.9 g/dL (3.4-5.0); CALCIUM, SERUM 9.4 mg/dL (8.5-10.1); CREATININE 1.2 mg/dL (0.6-1.3); MAGNESIUM 1.4 mg/dL (1.8-2.4); PHOSPHORUS 2.8 mg/dL (2.5-4.9); POTASSIUM 3.4 mmol/L (3.5-5.1); TOTAL PROTEIN, SERUM 7.7 g/dL (6.4-8.2)
--- NOTE | 2021-12-29 07:20 | NUR ---
FOREST FIRE PREVENTION SPECIALIST OPENING NOTE PT AWAKE IN BED. A/O X3 AND ABLE TO MAKE NEEDS KNOWN, EPISODES OF FORGETFULNESS. PT STABLE ON ROOM AIR. NO SOB OR S/S OF RESPIRATORY DISTRESS. BREATHING EVEN AND UNLABORED. ON EXTERNAL SHEET METAL ERECTOR READING SR 81 BPM. PT DENIES PAIN OR DISCOMFORT AT THIS TIME. IV ACCESS LAC 20G, INTACT AND PATENT, RUNNING 1/2 NS @ 75 ML/HR. SAFETY PRECAUTIONS IN PLACE AT ALL TIMES. BED IN LOWEST LOCKED POSITION, HOB ELEVATED, SIDE RAILS UP X2, AND CALL LIGHT AND TABLE WITHIN REACH. WILL MONITOR.
[2021-12-29] MEDS ORDERED: PANTOPRAZOLE 40 MG TABLET.DR PO SCH (07:30)
[2021-12-29 08:00] VITALS: BP 148/110
[2021-12-29 08:01] LABS: CHOLESTEROL 264 mg/dL (<200); HDL CHOLESTEROL 147 mg/dL (40-60); LDL 90 mg/dL (0-99); TRIGLYCERIDES 98 mg/dL (30-150)
[2021-12-29] MEDS: DOCUSATE SODIUM 100 MG CAPSULE PO SCH (08:41)
[2021-12-29] MEDS: METOPROLOL TARTRATE 25 MG TABLET PO SCH ×4 (08:41→23:49)
[2021-12-29] MEDS: CALCIUM CARBONATE (1250) 500 MG TABLET PO SCH ×3 (08:41→16:54)
[2021-12-29] MEDS ORDERED: POTASSIUM CHLORIDE 20 MEQ TAB.PRT.SR PO SCH (11:00)
[2021-12-29] MEDS: MAGNESIUM OXIDE 400 MG TABLET PO SCH ×2 (11:53→12:11)
[2021-12-29 12:00] VITALS: BP 155/100
[2021-12-29 16:00] VITALS: BP 117/82
--- NOTE | 2021-12-29 18:34 | NUR ---
IP NETWORK ARCHITECT CLOSING NOTE PT IN BED. A/O X3 AND ABLE TO MAKE NEEDS KNOWN, EPISODES OF FORGETFULNESS. PT STABLE ON ROOM AIR. NO SOB OR S/S OF RESPIRATORY DISTRESS. BREATHING EVEN AND UNLABORED. ON EXTERNAL BALL TRUING MACHINE OPERATOR READING SR 81 BPM. PT DENIES PAIN OR DISCOMFORT AT THIS TIME. IV ACCESS LAC 20G, INTACT AND PATENT, RUNNING 1/2 NS @ 75 ML/HR. DUE MEDS GIVEN, PT. SCHEDULED FOR CT ANGIO HEART WITH 3d TOMORROW, PATIENT FULLY AWARE, CONSENT SECURED. SAFETY PRECAUTIONS IN PLACE AT ALL TIMES. BED IN LOWEST LOCKED POSITION, HOB ELEVATED, SIDE RAILS UP X2, AND CALL LIGHT AND TABLE WITHIN REACH. ENDORSED TO NIGHT NURSE.
--- NOTE | 2021-12-29 19:30 | NUR ---
RETANNED LEATHER ROLLER OPENING NOTE PT AWAKE IN BED. A/O X3 AND ABLE TO MAKE NEEDS KNOWN, EPISODES OF FORGETFULNESS. PT STABLE ON ROOM AIR. NO SOB OR S/S OF RESPIRATORY DISTRESS. BREATHING EVEN AND UNLABORED. ON EXTERNAL PRINCIPAL SYSTEMS ARCHITECT READING SR. PT DENIES PAIN OR DISCOMFORT AT THIS TIME. IV ACCESS LAC 20G, INTACT AND PATENT, RUNNING 1/2 NS @ 75 ML/HR. SAFETY PRECAUTIONS IN PLACE. BED IN LOWEST LOCKED POSITION, HOB ELEVATED, SIDE RAILS UP X2, AND CALL LIGHT AND TABLE WITHIN REACH. ALL NEEDS MET AT THIS TIME.
[2021-12-29 20:00] VITALS: BP 118/82
[2021-12-29] MEDS: ATORVASTATIN 40 MG TABLET PO SCH (21:44)
[2021-12-30] VITALS: BP 148/84
[2021-12-30 04:00] VITALS: BP 136/89
[2021-12-30] MEDS: METOPROLOL TARTRATE 25 MG TABLET PO SCH ×3 (05:47→17:10)
--- NOTE | 2021-12-30 06:40 | NUR ---
TREE GIRDLER CLOSING NOTE PT AWAKE IN BED. A/O X3 AND ABLE TO MAKE NEEDS KNOWN, EPISODES OF FORGETFULNESS. PT STABLE ON ROOM AIR. NO SOB OR S/S OF RESPIRATORY DISTRESS. BREATHING EVEN AND UNLABORED. ON EXTERNAL EMPLOYEE PLACEMENT SPECIALIST READING SR 99 BPM. PT DENIES PAIN OR DISCOMFORT AT THIS TIME. IV ACCESS LAC 20G, INTACT AND PATENT, RUNNING 1/2 NS @ 75 ML/HR. ALL DUE MEDS GIVEN ORDERED. KEPT NPO AFTER MIDNIGHT. SAFETY PRECAUTIONS IN PLACE AT ALL TIMES. BED IN LOWEST LOCKED POSITION, HOB ELEVATED, SIDE RAILS UP X2, AND CALL LIGHT AND TABLE WITHIN REACH. ALL NEEDS MET AT THIS TIME AND WILL ENDORSE TO ONCOMING NURSE FOR JACLYN.
--- NOTE | 2021-12-30 07:00 | NUR ---
MANAGER QUANTITATIVE OPENING NOTES PATIENT LAYING IN BED, A/O X 3, ABLE TO MAKE NEEDS KNOWN. TOLERATING WELL ON ROOM AIR WITH NO S/S RESPIRATORY DISTRESS. NO COMPLAINTS OF PAIN AT THIS TIME. TELE MONITOR IN PLACE READING SR 78. L AC # 20 G IV CLEAN, INTACT, AND INFUSING 1/2 NS @ 75 ML/HR. PATIENT CURRENTLY NPO STATUS PENDING CT EXAM. SAFETY MEASURES IN PLACE: BED IN LOWEST LOCKED POSITION, SIDE RAILS UP X 2, CALL LIGHT WITHIN REACH. WILL CONTINUE TO MONITOR.
[2021-12-30 08:00] VITALS: BP 118/77
[2021-12-30] MEDS: CALCIUM CARBONATE (1250) 500 MG TABLET PO SCH ×3 (08:10→17:09)
[2021-12-30] MEDS: DOCUSATE SODIUM 100 MG CAPSULE PO SCH (08:10)
[2021-12-30 12:00] VITALS: BP 126/78
[2021-12-30] MEDS ORDERED: IOHEXOL-350 100 ML VIAL IV ONE (12:58)
[2021-12-30] MEDS ORDERED: NITROGLYCERIN 0.4 MG/TAB BOTTLE ONE (12:59)
[2021-12-30] MEDS ORDERED: METOPROLOL TARTRATE INJ 5 MG/5 ML AMPUL ONE ×2 (12:59→13:44)
[2021-12-30] MEDS ORDERED: CT SWABBABLE VALVE TRANS SET 1 EA INFUS.SET MC ONE (13:00)
[2021-12-30] MEDS ORDERED: IV NS 0.9% 250 ML IV ONE (13:00)
[2021-12-30] MEDS: METOPROLOL TARTRATE INJ 5 MG/5 ML AMPUL IVP PRN ×10 (13:20→14:05)
[2021-12-30] MEDS ORDERED: NITROGLYCERIN 0.4 MG/TAB BOTTLE SL PRN (13:30)
[2021-12-30 16:00] VITALS: BP 129/81
--- NOTE | 2021-12-30 19:00 | NUR ---
GAS STATION SERVICE ATTENDANT CLOSING NOTES PATIENT LAYING IN BED, A/O X 3, ABLE TO MAKE NEEDS KNOWN. TOLERATING WELL ON ROOM AIR WITH NO S/S RESPIRATORY DISTRESS. NO COMPLAINTS OF PAIN AT THIS TIME. TELE MONITOR IN PLACE READING SR. R HAND # 22 G IV CLEAN, INTACT, AND INFUSING 1/2 NS @ 75 ML/HR. SAFETY MEASURES IN PLACE: BED IN LOWEST LOCKED POSITION, SIDE RAILS UP X 2, CALL LIGHT WITHIN REACH. ALL NEEDS MET. WILL ENDORSE TO GRAPHICS MANAGER FOR JACLYN.
--- NOTE | 2021-12-30 19:30 | NUR ---
LINEMARKER OPENING NOTE PT AWAKE IN BED. A/O X3 AND ABLE TO MAKE NEEDS KNOWN, EPISODES OF FORGETFULNESS. PT STABLE ON ROOM AIR. NO SOB OR S/S OF RESPIRATORY DISTRESS. BREATHING EVEN AND UNLABORED. ON EXTERNAL VALIDATION LEADER READING SR. PT DENIES PAIN OR DISCOMFORT AT THIS TIME. IV ACCESS R HAND 22G, INTACT AND PATENT, RUNNING 1/2 NS @ 75 ML/HR. SAFETY PRECAUTIONS IN PLACE. BED IN LOWEST LOCKED POSITION, HOB ELEVATED, SIDE RAILS UP X2, AND CALL LIGHT AND TABLE WITHIN REACH. ALL NEEDS MET AT THIS TIME.
[2021-12-30 20:00] VITALS: BP 120/72
[2021-12-30] MEDS: ATORVASTATIN 40 MG TABLET PO SCH (21:48)
[2021-12-31] VITALS: BP 139/79
[2021-12-31] MEDS: METOPROLOL TARTRATE 25 MG TABLET PO SCH ×4 (00:06→18:01)
[2021-12-31 04:00] VITALS: BP 114/77
--- NOTE | 2021-12-31 06:38 | NUR ---
WARE TESTER CLOSING NOTE PT AWAKE IN BED. A/O X3 AND ABLE TO MAKE NEEDS KNOWN, EPISODES OF FORGETFULNESS. PT STABLE ON ROOM AIR. NO SOB OR S/S OF RESPIRATORY DISTRESS. BREATHING EVEN AND UNLABORED. ON EXTERNAL SCRUBBING MACHINE OPERATOR READING SR 80 BPM. PT DENIES PAIN OR DISCOMFORT AT THIS TIME. IV ACCESS R HAND 22G, INTACT AND PATENT, RUNNING 1/2 NS @ 75 ML/HR. ALL DUE MEDS GIVEN ORDERED. SAFETY PRECAUTIONS IN PLACE AT ALL TIMES. BED IN LOWEST LOCKED POSITION, HOB ELEVATED, SIDE RAILS UP X2, AND CALL LIGHT AND TABLE WITHIN REACH. ALL NEEDS MET AT THIS TIME AND WILL ENDORSE TO ONCOMING NURSE FOR JACLYN.
--- NOTE | 2021-12-31 07:15 | NUR ---
MOTOR VEHICLE ASSEMBLY SUPERVISOR OPENING NOTE RECEIVED PT AWAKE IN BED. A/O X3 WITH EPISODES OF FORGETFULNESS. ON RA WITH NO SOB OR S/S OF RESPIRATORY DISTRESS. ON TELE MONITOR WITH SR @ 68 BPM. IV L HAND #22G SL, PATENT AND INTACT. SAFETY PRECAUTIONS IN PLACE: BED LOCKED AND IN LOW POSITION; SIDE RAILS UP X3; CALL LIGHT AND TRAY TABLE WITHIN REACH. WILL CONTINUE TO MONITOR AND ASSIST.
[2021-12-31 08:00] VITALS: BP 103/67
[2021-12-31] MEDS: DOCUSATE SODIUM 100 MG CAPSULE PO SCH (08:59)
[2021-12-31] MEDS: CALCIUM CARBONATE (1250) 500 MG TABLET PO SCH ×3 (08:59→17:30)
[2021-12-31 10:42] LABS: BASOPHILS % (AUTO) 0.2 % (0.0-2.0); EOSINOPHILS % (AUTO) 2.3 % (0.0-6.0); HEMATOCRIT 46 % (39-51); HEMOGLOBIN 14.8 g/dL (13.5-17.5); LYMPHOCYTES # (AUTO) 1.2 K/uL (0.8-4.8); MEAN CORPUSCULAR HGB CONC 32 g/dl (31.0-36.0); MEAN CORPUSCULAR VOLUME 91 fL (80-96); MONOCYTES # (AUTO) 0.8 K/uL (0.1-1.30); MONOCYTES % (AUTO) 13.2 % (2.0-12.0); NEUTROPHILS # (AUTO) 3.7 K/uL (1.8-8.9); NEUTROPHILS % (AUTO) 63.3 % (43.0-81.0); PLATELET COUNT (AUTO) 105 K/uL (150-450); RED BLOOD CELL COUNT(AUTO) 5.07 MIL/uL (4.5-6.0); WHITE BLOOD COUNT (AUTO) 5.8 K/uL (4.3-11.0)
[2021-12-31 11:21] LABS: CARBON DIOXIDE 32 mmol/L (21-32); CHLORIDE 100 mmol/L (98-107); CREATININE 1.5 mg/dL (0.6-1.3); GLUCOSE 92 mg/dL (74-106); POTASSIUM 3.8 mmol/L (3.5-5.1); SODIUM SERUM 139 mmol/L (136-145); UREA NITROGEN, BLOOD 33 mg/dL (7-18)
[2021-12-31 12:00] VITALS: BP 128/76
[2021-12-31] MEDS: IV 1/2NS 1000 ML 1,000 ML IV PRN (13:24)
[2021-12-31] MEDS ORDERED: LIDOCAINE 1% INJ 50 ML MDV IJ ONE (14:10)
[2021-12-31] MEDS ORDERED: IV NS 0.9% 1,000 ML ONE (14:10)
[2021-12-31] MEDS ORDERED: IODIXANOL 150 ML IV ONE (14:10)
[2021-12-31] MEDS ORDERED: IV SET PRIMARY PUMP SET 1 EA INFUS.SET MC ONE (14:10)
[2021-12-31] MEDS ORDERED: NITROGLYCERIN IN 5 % DEXTROSE 250 ML IV ONE (14:10)
--- NOTE | 2021-12-31 14:36 | NUR ---
RN NOTES PT PICKED UP JUST NOW FOR CARDIAC CATHETERIZATION BY DR PONCE.
[2021-12-31] MEDS ORDERED: HEPARIN SODIUM, PORCINE 1,000 UNIT/ML VIAL ONE (14:44)
[2021-12-31] MEDS ORDERED: MIDAZOLAM HCL 2 MG/2ML VIAL ONE (14:44)
[2021-12-31] MEDS ORDERED: FENTANYL PF 100MCG/2ML AMPUL ONE (14:44)
--- NOTE | 2021-12-31 16:07 | NUR ---
RN NOTES PT RETURNED TO UNIT AT 1555 S/P CARDIAC CATHETERIZATION BY DR PONCE. TR BAND NOTED TO TO RIGHT WRIST WITH NO ACTIVE BLEEDING NOTED. PULSE PALPABLE. V/S TAKEN: BP 102/50, P 84, R 19, T 97.4F AND SP02 94% ON ROOM. WILL CONTINUE TO MONITOR PT ACCORDINGLY.
[2021-12-31 16:44] VITALS: BP 102/50
--- NOTE | 2021-12-31 17:31 | NUR ---
RN NOTES 1730- REMOVED 3ML OF 17ML OF AIR FROM TR BAND, NO ACTIVE BLEEDING NOTED. PULSE PALPABLE. V/S BP 114/70, P 88. R 18, T 98.2F AND SP02 94% ON RA.
--- NOTE | 2021-12-31 17:49 | NUR ---
RN NOTES 1745- REMOVED 3ML OF AIR FROM TR BAND, NO ACTIVE BLEEDING NOTED. PULSE PALPABLE. V/S BP 115/68, P 86. R 18, T 98F AND SP02 94% ON RA.
--- NOTE | 2021-12-31 18:00 | NUR ---
RN NOTES 1800- REMOVED 4ML OF AIR FROM TR BAND, NO ACTIVE BLEEDING NOTED. PULSE PALPABLE. V/S BP 117/72, P 81. R 18, T 98.1F AND SP02 94% ON RA.
--- NOTE | 2021-12-31 18:15 | NUR ---
RN NOTES 1815: REMOVED 4ML OF AIR FROM TR BAND, NO ACTIVE BLEEDING NOTED. PULSE PALPABLE. V/S BP 112/54, P 81. R 19, T 98.1F AND SP02 94% ON RA.
--- NOTE | 2021-12-31 18:45 | NUR ---
ENVIRONMENTAL LABORATORY TECHNICIAN CLOSING NOTE PT AWAKE IN BED, WATCHING TV AT THIS TIME. A/O X3 WITH EPISODES OF FORGETFULNESS. STABLE ON RA WITH NO SOB OR S/S OF RESPIRATORY DISTRESS. ON TELE MONITOR WITH CURRENT READING OF SR @ 82 BPM. V/S CLOSELY MONITORED POST CARDIAC CATH. TR BAND ON RIGHT WRIST REMOVED AND COVERED WITH CLEAR TAPE DRESSING. NO BLEEDING NOTED. IV R HAND #22G SL, PATENT AND INTACT. ALL NEEDS AND CARE PROVIDED. PRESCRIBED MEDS ADMINISTERED AND TOLERATED. SAFETY PRECAUTIONS MAINTAINED: BED LOCKED AND IN LOW POSITION; SIDE RAILS UP X3; CALL LIGHT AND TRAY TABLE WITHIN REACH. WILL ENDORSE JACLYN TO AUTOMOBILE SERVICE STATION MECHANIC NURSE.
--- NOTE | 2021-12-31 18:50 | NUR ---
RN NOTES 1830: REMOVED 3ML OF AIR FROM TR BAND WITH TOTAL OF 17ML REMOVED. TR BAND REMOVED WITH NO ACTIVE BLEEDING NOTED, CLEAR DRESSING APPLIED AT SITE. PULSE PALPABLE. V/S TAKEN: BP 108/67, P 82. R 18, T 98.F AND SP02 94% ON RA.
[2021-12-31 20:00] VITALS: BP 121/71
--- NOTE | 2021-12-31 20:05 | NUR ---
RN OPENING NOTE PATIENT AWAKE IN BED. A/OX3. NO S/S OF DISTRESS, BREATHING WITHOUT DIFFICULTY ON ROOM AIR. L-HAND #24 INTACT AND PATENT WITH NS 75ML/HR; RFA #22 SL INTACT AND PATENT. TELE READS SR 82. SAFETY MEASURES IN PLACE: BED LOCKED AND AT LOWEST POSITION, RAILS UP X2, CALL ZIMMER WITHIN REACH. WILL CONTINUE TO MONITOR PATIENT.
[2021-12-31] MEDS: ATORVASTATIN 40 MG TABLET PO SCH (21:12)
[2022-01-01] VITALS: BP 116/65
[2022-01-01] MEDS: METOPROLOL TARTRATE 25 MG TABLET PO SCH ×3 (00:23→12:49)
[2022-01-01 04:00] VITALS: BP 118/72
[2022-01-01] MEDS: IV 1/2NS 1000 ML 1,000 ML IV PRN (05:13)
--- NOTE | 2022-01-01 06:32 | NUR ---
RN CLOSING NOTE PATIENT ASLEEP IN BED. A/OX3. NO S/S OF DISTRESS, BREATHING WITHOUT DIFFICULTY ON ROOM AIR. L-HAND #24 SL INTACT AND PATENT; RFA #22 INTACT AND PATENT W/ NS 75ML/HR. TELE READS SR 75. SAFETY MEASURES IN PLACE: BED LOCKED AND AT LOWEST POSITION, RAILS UP X2, CALL ZIMMER WITHIN REACH. WILL ENDORSE TO NEXT SHIFT FOR JACLYN. Addendum: 01/01/22 at 0646 by BLAIRE POLLOCK RN CORRECTION: IV IS 1/2NS AT 75ML/HR
[2022-01-01 07:00] VITALS: BP 130/73
--- NOTE | 2022-01-01 07:30 | NUR ---
RN Receiving Report. Patient AOx3, able to express his concerns. Patient states he is ready for discharge, discussed plan of care, patient verbalized agreement. All safety precautions taken, call light and table within reach, bed at lowest position. Will continue to monitor throughout shift.
[2022-01-01] MEDS: CALCIUM CARBONATE (1250) 500 MG TABLET PO SCH ×2 (08:20→12:48)
[2022-01-01] MEDS: DOCUSATE SODIUM 100 MG CAPSULE PO SCH (08:20)
[2022-01-01] MEDS ORDERED: ASPIRIN 81 MG TAB.CHEW PO SCH (09:00)
[2022-01-01 09:30] LABS: CALCIUM, SERUM 9.6 mg/dL (8.5-10.1); CARBON DIOXIDE 30 mmol/L (21-32); CHLORIDE 101 mmol/L (98-107); CREATININE 1.5 mg/dL (0.6-1.3); GLUCOSE 116 mg/dL (74-106); POTASSIUM 3.6 mmol/L (3.5-5.1); SODIUM SERUM 138 mmol/L (136-145); UREA NITROGEN, BLOOD 29 mg/dL (7-18)
[2022-01-01 09:36] LABS: ALANINE AMINOTRANSFERASE 49 U/L (12-78); ALBUMIN 3.8 g/dL (3.4-5.0); ALKALINE PHOSPHATASE 59 U/L (46-116); ASPARTATE AMINOTRANSFERASE 55 U/L (15-37); BILIRUBIN,TOTAL 0.9 mg/dL (0.2-1.0); TOTAL PROTEIN, SERUM 7.7 g/dL (6.4-8.2)
[2022-01-01] MEDS ORDERED: METO-358 PO (11:46)
[2022-01-01] MEDS ORDERED: ASPI-1169 PO (11:46)
[2022-01-01 12:49] VITALS: BP 132/86
--- NOTE | 2022-01-01 14:23 | NUR ---
rare/endangered species specialist Report Patient AOx4, able to express her concerns. Patient meets discharge criteria. Discharge order in, patient agrees. Called [facility] [phone] and provided report to Enrike. [facility] Transportation unit#[id number] team is here to transfer patient to facility for continuity of care. Patient transported out of unit safely, all safety precautions taken.
== END 2022-01-01 14:30 | DRG 287 ==
LOC: ER 10:38 → TELE 18:30 → MED 01-01 10:42
PROVIDERS: ADMIT Internal Medicine; ATTEND Nurse Practitioner Acute Care
PROC: 4A023N7 Measurement of Cardiac Sampling and Pressure, Left Heart, Percutaneous Approach (ICD-10-PCS; principal; 2021-12-31)
PROC: B211YZZ Fluoroscopy of Multiple Coronary Arteries using Other Contrast (ICD-10-PCS; 2021-12-31)
DX: I25.110 Atherosclerotic heart disease of native coronary artery with unstable angina pectoris (principal); M48.50XA Collapsed vertebra, not elsewhere classified, site unspecified, initial encounter for fracture; D69.6 Thrombocytopenia, unspecified; G40.909 Epilepsy, unspecified, not intractable, without status epilepticus; Z20.822 Contact with and (suspected) exposure to COVID-19; Z86.73 Personal history of transient ischemic attack (TIA), and cerebral infarction without residual deficits; Z86.11 Personal history of tuberculosis; I10 Essential (primary) hypertension; Z79.899 Other long term (current) drug therapy; E78.5 Hyperlipidemia, unspecified; F17.200 Nicotine dependence, unspecified, uncomplicated; K21.9 Gastro-esophageal reflux disease without esophagitis; F10.10 Alcohol abuse, uncomplicated; Z98.890 Other specified postprocedural states
CPT/HCPCS: 36415; 71045-TC; 75574; 80048-TC; 80053-TC; 80061-TC; 83735-TC; 83880; 84100-TC; 84443-TC; 84484-TC; 85025-TC; 85378-TC; 85610-TC; 85730-TC; 87081-TC; 93307-TC; 97110-TC; 97116-TC; 97530-TC; C1887; C9803; G0378; G0500; J1644; J1650; J2250; J3010; J3490; J7030; J7050; Q9967

== ENCOUNTER 2022-07-28 08:23 | Inpatient (IN) | payer MEDICARE, OTHER ==
[~2022-07-28] VITALS: Ht 180.3 cm; Wt 74.8 kg
[~2022-07-28 08:23] MED LIST changes: +ASPI-1169 PO; -CEPH500T PO; -DOCU-141 PO; +METO-358 PO; -POLY17PO4 PO
--- NOTE | 2022-07-28 08:27 | NUR ---
[id number] FROM [facility] C/O GENERALIZED BODY ACHES, STARTED HAVING CHEST PAIN 4 HOURS AGO. WAS GIVEN [address] EMPLOYMENT ADVISOR. PT APPEARS TO BE INTOXICATED W STRONG ETOH SMELL. YELLING REQUESTING FOR WATER. PLACED ON MONITOR., TACHY OTHERWISE STABLE VITALS. AWAITING MD MARY.
--- NOTE | 2022-07-28 08:33 | NUR ---
DR JOHNSON AT BEDSIDE FOR EVAL.
--- NOTE | 2022-07-28 08:36 | NUR ---
COVID SWAB COLLECTED AND SENT TO LAB
--- NOTE | 2022-07-28 08:52 | NUR ---
IV ACCESS 20G RIGHT WRIST. BLOOD SPECIMEN COLLECTED AND SENT TO LAB.
--- NOTE | 2022-07-28 08:59 | NUR ---
PLACED PT ON URINAL TO ATTEMPT TO COLLECT URINE SAMPLE.
[2022-07-28 09:03] LABS: BASOPHILS % (AUTO) 0.4 % (0.0-2.0); EOSINOPHILS % (AUTO) 0.1 % (0.0-6.0); HEMATOCRIT 44 % (39-51); LYMPHOCYTES # (AUTO) 1.1 K/uL (0.8-4.8); LYMPHOCYTES % (AUTO) 13.4 % (20.0-44.0); MEAN CORPUSCULAR HGB CONC 32 g/dl (31.0-36.0); MEAN CORPUSCULAR VOLUME 91 fL (80-96); MONOCYTES # (AUTO) 0.7 K/uL (0.1-1.30); MONOCYTES % (AUTO) 8.3 % (2.0-12.0); NEUTROPHILS # (AUTO) 6.6 K/uL (1.8-8.9); NEUTROPHILS % (AUTO) 77.8 % (43.0-81.0); PLATELET COUNT (AUTO) 257 K/uL (150-450); RED BLOOD CELL COUNT(AUTO) 4.85 MIL/uL (4.5-6.0); WHITE BLOOD COUNT (AUTO) 8.5 K/uL (4.3-11.0)
--- NOTE | 2022-07-28 09:03 | NUR ---
XRAY AT BEDSIDE
--- NOTE | 2022-07-28 09:03 | NUR ---
URINE SAMPLE COLLECTED AND SENT TO LAB
--- NOTE | 2022-07-28 09:04 | NUR ---
Pt Mrsa at 8:49
[2022-07-28 09:14] LABS: CALCIUM, SERUM 9.4 mg/dL (8.5-10.1); CARBON DIOXIDE 20 mmol/L (21-32); CHLORIDE 98 mmol/L (98-107); CREATININE 1.7 mg/dL (0.6-1.3); GLUCOSE 155 mg/dL (74-106); POTASSIUM 5.2 mmol/L (3.5-5.1); SODIUM SERUM 141 mmol/L (136-145); UREA NITROGEN, BLOOD 30 mg/dL (7-18)
[2022-07-28 09:26] LABS: ALANINE AMINOTRANSFERASE 59 U/L (12-78); ALBUMIN 4.1 g/dL (3.4-5.0); ALCOHOL, BLOOD 46 mg/dL (0-10); ALKALINE PHOSPHATASE 57 U/L (46-116); ASPARTATE AMINOTRANSFERASE 58 U/L (15-37); BILIRUBIN,TOTAL 0.6 mg/dL (0.2-1.0); TOTAL PROTEIN, SERUM 8.3 g/dL (6.4-8.2)
[2022-07-28] MEDS ORDERED: IV NS 0.9% 1,000 ML IV ONE (09:30)
[2022-07-28] MEDS ORDERED: ONDANSETRON HCL/PF 4 MG/2 ML VIAL IV ONE (09:30)
[2022-07-28 09:34] LABS: THYROID STIMULATING HORMONE 0.657 uIU/mL (0.358-3.74)
[2022-07-28 09:35] LABS: BILIRUBIN,URINE 1+ (NEGATIVE); COLOR,URINE YELLOW (YELLOW); LEUKOCYTE ESTERASE ,URINE NEGATIVE (NEGATIVE); NITRITE, URINE NEGATIVE (NEGATIVE); PROTEIN,URINE 2+ mg/dl (NEGATIVE); UGLUCOSE NEGATIVE (NEGATIVE); UROBILINOGEN,URINE 0.2 EU/dL (0.2)
[2022-07-28 09:36] LABS: BACTERIA,URINE Rare /HPF (None Seen); SQUAMOUS EPITHELIAL CELL,UR Few /HPF (None Seen); WBC,URINE 0-2 /HPF (0-3)
[2022-07-28] MEDS ORDERED: ONDANSETRON HCL/PF 4 MG/2 ML VIAL ONE (09:36)
--- NOTE | 2022-07-28 10:06 | NUR ---
called nursing terminal supervisor for tele bed.
--- NOTE | 2022-07-28 10:32 | NUR ---
room assigned. 309.1 admitting aware
--- NOTE | 2022-07-28 10:40 | NUR ---
report given to rafal hoff. awaiting transfer to floor.
--- NOTE | 2022-07-28 10:55 | NUR ---
TELE/MS RN ADMITTING NOTES ADMITTED THIS 77 YEAR OLD, MALE PATIENT TO UNIT AT 10:55AM VIA REGULAR GURNEY ACCOMPANIED BY ER NURSE WITH DIAGNOSIS OF CHEST PAIN. PATIENT IS ABLE TO WALK FROM GURNEY TO BED. A/O X3, ABLE TO MAKE NEEDS KNOWN. ORIENTED TO STAFF AND UNIT. PLACED ON PHP WEBSITE DEVELOPER, CURRENT READING OF SINUS TACHYCARDIA 104 BPM. PATIENT ON O2 @2LPM VIA NASAL CANNULA, TOLERATING WELL, WITH NON LABORED AND EVEN BREATHING PATTERN. WITH IV ACCESS @ RIGHT WRIST G#20, PATENT,INTACT, AND SL. CLEAR LUNG SOUNDS UPON AUSCULTATION. ABDOMEN,SOFT AND NON TENDER, NOT DISTENDED. BOWEL SOUND PRESENT ON 4 QUADRANTS. SKIN IS WARM AND DRY. REFUSED TO BE ASSESSED ANY FURTHER. SAFETY PRECAUTIONS INITIATED: BED PLACED IN LOWEST, LOCKED POSITION, RAILS UPX3. BEDSIDE TABLE AND CALL LIGHT WITHIN EASY REACH. WILL CONTINUE TO MONITOR THROUGHOUT SHIFT.
--- NOTE | 2022-07-28 11:01 | NUR ---
transferred to floor in stable condition.
[2022-07-28] MEDS ORDERED: TAMS-12 PO (11:07)
[2022-07-28] MEDS ORDERED: METO-358 PO (11:07)
[2022-07-28] MEDS ORDERED: ATOR40TA PO (11:07)
[2022-07-28] MEDS ORDERED: DOCU-270 PO (11:07)
[2022-07-28] MEDS ORDERED: OMEP20CA15 PO (11:07)
[2022-07-28] MEDS ORDERED: LORA-259 PO (11:07)
[2022-07-28] MEDS ORDERED: CALC-494 PO (11:07)
[2022-07-28] MEDS ORDERED: ZOLP5TAB2 PO (11:07)
[2022-07-28] MEDS ORDERED: MYRBETRIQ PO (11:07)
[2022-07-28] MEDS ORDERED: ONDA4TAB5 PO (11:07)
[2022-07-28] MEDS ORDERED: LORAZEPAM INJ 2 MG/ML VIAL IV PRN (11:30)
[2022-07-28] MEDS ORDERED: IV LR 500 ML IV ONE (11:30)
[2022-07-28] MEDS ORDERED: Z GUARD REMEDY 4 OZ OINT TP PRN (11:30)
[2022-07-28] MEDS ORDERED: ACETAMINOPHEN 325 MG TABLET PO PRN (11:30)
--- NOTE | 2022-07-28 12:00 | NUR ---
KOKO NOTES: PATIENT PULLED OUT HIS IV ACCESS WITH HIS IV POLE. PT STATED LET HIM REST. WILL FOLLOW UP. Addendum: 07/28/22 at 1841 by SCOTT WYNNE RN ERROR
[2022-07-28] MEDS: METOPROLOL SUCCINATE 50 MG TAB.SR.24H PO SCH (12:20)
[2022-07-28] MEDS: ENOXAPARIN SODIUM 40 MG/0.4 ML DISP.SYRIN SQ SCH (12:27)
--- NOTE | 2022-07-28 12:30 | NUR ---
RN NOTES: PATIENT PULLED OUT HIS IV ACCESS WITH HIS IV POLE. PT STATED LET HIM REST. WILL FOLLOW UP.
[2022-07-28 16:23] VITALS: BP 163/95
[2022-07-28] MEDS: DOCUSATE SODIUM 100 MG CAPSULE PO SCH (17:00)
--- NOTE | 2022-07-28 17:55 | NUR ---
RN NOTES IV REINSERTED AT LEFT FOREARM G#22, PATENT, FLUSHING WELL.
--- NOTE | 2022-07-28 18:00 | NUR ---
RN NOTES: REINSERTED IV ACCESS ON LEFT FOREARM GAUGE 22. PATENT INTACT AND RESUME IV FLUIDS.
--- NOTE | 2022-07-28 18:26 | NUR ---
MS/HEEL COVERER MACHINE OPERATOR CLOSING NOTES: PATIENT AWAKE, SITTING UP IN BED, A/O X3, ABLE TO MAKE NEEDS KNOWN. PATIENT IN RA, TOLERATING WELL, WITH NON LABORED AND EVEN BREATHING PATTERN. WITH IV ACCESS @ LFA G#22, LR 500ML @100ML/HR PATENT AND INFUSING WELL. SAFETY PRECAUTIONS MAINTAINED: BED PLACED IN LOWEST, LOCKED POSITION, RAILS UPX3. BEDSIDE TABLE AND CALL LIGHT WITHIN EASY REACH. WILL ENDORSE TO PM SHIFT FOR JACLYN.
--- NOTE | 2022-07-28 20:18 | NUR ---
RECEIVED PATIENT IN BED, ALERT/ORIENTED X3, ROOM AIR, NO COMPLAIN OF PAIN, REFUSED TO WEAR HOSPITAL GOWN, MALODOROUS AND UNKEMPT. EPISODE OF URINARY INCONTINENCE, KEPT SAFE, WILL CONTINUE TO MONITOR.
[2022-07-28 20:40] VITALS: BP 138/78
[2022-07-28 20:46] VITALS: BP 138/78
[2022-07-28] MEDS: ATORVASTATIN 40 MG TABLET PO SCH (21:35)
[2022-07-29] VITALS (9 sets, daily range): BP systolic 108–163; BP diastolic 71–105
--- NOTE | 2022-07-29 05:00 | NUR ---
NOTIFIED TRIMMER MEAT SHADIA REGARDING ELEVATED BP, NEW ORDER OF ASPIRIN 162 MG PO X1 AND NITRO PATCH Q24H. ORDERS NOTED AND CARRIED OUT.
[2022-07-29] MEDS ORDERED: ASPIRIN 81 MG TAB.CHEW PO ONE (05:30)
[2022-07-29 05:57] LABS: BASOPHILS % (AUTO) 0.3 % (0.0-2.0); EOSINOPHILS % (AUTO) 0.8 % (0.0-6.0); HEMATOCRIT 44 % (39-51); HEMOGLOBIN 14.3 g/dL (13.5-17.5); LYMPHOCYTES # (AUTO) 1.6 K/uL (0.8-4.8); LYMPHOCYTES % (AUTO) 26.6 % (20.0-44.0); MEAN CORPUSCULAR HGB CONC 32 g/dl (31.0-36.0); MEAN CORPUSCULAR VOLUME 89 fL (80-96); MONOCYTES # (AUTO) 0.7 K/uL (0.1-1.30); MONOCYTES % (AUTO) 11.8 % (2.0-12.0); NEUTROPHILS # (AUTO) 3.6 K/uL (1.8-8.9); NEUTROPHILS % (AUTO) 60.5 % (43.0-81.0); PLATELET COUNT (AUTO) 200 K/uL (150-450); RED BLOOD CELL COUNT(AUTO) 4.99 MIL/uL (4.5-6.0); WHITE BLOOD COUNT (AUTO) 5.9 K/uL (4.3-11.0)
[2022-07-29 06:17] LABS: ALBUMIN 3.9 g/dL (3.4-5.0); BILIRUBIN,TOTAL 0.6 mg/dL (0.2-1.0); CREATININE 1.3 mg/dL (0.6-1.3); PHOSPHORUS 1.4 mg/dL (2.5-4.9); POTASSIUM 3.9 mmol/L (3.5-5.1)
--- NOTE | 2022-07-29 06:29 | NUR ---
FROM [facility], REFUSED MEDICATIONS AND COMPLAINING OF CHEST PAIN. ALERT/ORIENTED X3, SR IN THE TELE. FORGETFUL, ROOM AIR, NO COMPLAIN OF PAIN, AMBULATORY. UNKEMPT, MALODOROUS, REFUSED HOSPITAL GOWN, REFUSED CHANGING OF CLOTHES AND HYGIENE CARE, AMBULATORY, WITH EPISODES OF INCONTINENCE. PER POC, SERIAL TROPONINS, AM LABS, 2D ECHO, THIAMINE, ATIVAN PRN FOR ALCOHOL WITHDRAWAL
--- NOTE | 2022-07-29 07:30 | NUR ---
HIGH DENSITY PRESS LABORER OPENING NOTES RECEIVED PT AWAKE IN BED, ALERT/ORIENTED X4, ON TELE MONITOR SR 80. STABLE ON ROOM AIR. NO COMPLAINTS OF CHEST PAIN. NO DISTRESS NOTED. IV ACCESS ON RFA #22G SL. AMBULATORY WITH BRP. FALL AND SAFETY MEASURES DONE, BED LOCKED IN LOWEST POSITION, SIDE RAILS UP X2, CALL LIGHT WITHIN REACH. WILL ADMINISTER ALL SCHEDULED MEDS ORDERED. WILL FOLLOW UP 2D ECHO, SERIAL TROPONINS. WILL CONTINUE TO MONITOR.
[2022-07-29] MEDS: THIAMINE HCL 100 MG TABLET PO SCH (08:08)
[2022-07-29] MEDS: TAMSULOSIN 0.4 MG CAP.SR.24H PO SCH (08:08)
[2022-07-29] MEDS: PANTOPRAZOLE 40 MG TABLET.DR PO SCH (08:08)
[2022-07-29] MEDS: DOCUSATE SODIUM 100 MG CAPSULE PO SCH ×2 (08:08→16:00)
[2022-07-29] MEDS: ASPIRIN EC 81 MG TABLET.DR PO SCH (08:10)
[2022-07-29] MEDS: NITROGLYCERIN 0.1 MG/HR PATCH.TD24 TD SCH (08:49)
[2022-07-29] MEDS ORDERED: hydrALAZINE HCL 25 MG TABLET PO PRN (09:00)
[2022-07-29] MEDS: ONDANSETRON HCL/PF 4 MG/2 ML VIAL IVP PRN (10:10)
[2022-07-29] MEDS: ENOXAPARIN SODIUM 40 MG/0.4 ML DISP.SYRIN SQ SCH (12:50)
[2022-07-29] MEDS: METOPROLOL SUCCINATE 50 MG TAB.SR.24H PO SCH (12:50)
[2022-07-29] MEDS ORDERED: K PHOS NEUTRAL 250 MG TABLET PO ONE (16:00)
--- NOTE | 2022-07-29 18:52 | NUR ---
MS RN CLSOING NOTES PT RESTING IN BED, ALERT/ORIENTED X4, STABLE ON ROOM AIR. NO COMPLAINTS OF CHEST PAIN. NO DISTRESS NOTED. IV ACCESS ON RFA #22G SL. AMBULATORY WITH BRP. FALL AND SAFETY MEASURES DONE, BED LOCKED IN LOWEST POSITION, SIDE RAILS UP X2, CALL LIGHT WITHIN REACH. ALL MEDS GIVEN ORDERED. WILL ENDORSE TO NEXT SHIFT.
--- NOTE | 2022-07-29 19:41 | NUR ---
MS RN OPENING NOTES - RECEIVED PATIENT LAYING IN BED AWAKE. A/O X3. BREATHING EVEN AND NON-LABORED ON ROOM AIR. NO C/O PAIN OR DISCOMFORT AT THIS TIME. HAS RIGHT HAND IV ACCESS #22G AND SALINE LOCKED. NO S/S OF INFILTRATION NOTED. SAFETY PRECAUTIONS IN PLACE: BED LOCKED AND IN LOW POSITION, SIDE RAILS UP X2, CALL LIGHT WITHIN REACH. WILL CONTINUE PLAN OF CARE.
[2022-07-29] MEDS: ATORVASTATIN 40 MG TABLET PO SCH (22:41)
--- NOTE | 2022-07-30 06:53 | NUR ---
MS RN CLOSING NOTES - PATIENT RESTING IN BED, ABLE TO VERBALIZE NEEDS. MALODOROUS AND UNKEMPT. NO RESPIRATORY OR CARDIAC DISTRESS. NO SOB OR NOTED. DENIES CHEST PAIN. AFEBRILE. RIGHT HAND IV ACCESS INTACT, PATENT AND FLUSHING. ALL DUE MEDS GIVEN AND NEEDS ATTENDED. AMBULATORY AND NEEDS MINIMAL ASSISTANCE WITH ADLS. SAFETY PRECAUTIONS MAINTAINED. WILL ENDORSE TO AM RN FOR JACLYN.
[2022-07-30 08:00] VITALS: BP 122/83
--- NOTE | 2022-07-30 08:00 | NUR ---
RN OPENING NOTE RECEIVED PATIENT AWAKE ON BED A/O X3, ON ROOM AIR WITH NO SOB OR SIGNS OF RESPIRATORY DISTRESS. NO S/S OF PAIN AT THIS TIME. WITH IV ACCES ON RIGHT HAND #22G WITH SL. SAFETY MEASURE IN PLACE, BED IN LOWER LOCKED POSITION, SIDE RAILS UP X2, CALL LIGHT WITHIN REACH. WILL CONTINUE TO MONITOR.
[2022-07-30] MEDS: DOCUSATE SODIUM 100 MG CAPSULE PO SCH ×3 (08:32→16:52)
[2022-07-30] MEDS: PANTOPRAZOLE 40 MG TABLET.DR PO SCH (08:32)
[2022-07-30] MEDS: TAMSULOSIN 0.4 MG CAP.SR.24H PO SCH (08:32)
[2022-07-30] MEDS: THIAMINE HCL 100 MG TABLET PO SCH (08:32)
[2022-07-30] MEDS: NITROGLYCERIN 0.1 MG/HR PATCH.TD24 TD SCH (08:33)
--- NOTE | 2022-07-30 08:39 | NUR ---
rn note patient's colace at 0900 was dropped. pill was return and discarded in the appropriate container. [facility]
[2022-07-30] MEDS: ASPIRIN EC 81 MG TABLET.DR PO SCH (08:48)
[2022-07-30] MEDS: METOPROLOL SUCCINATE 50 MG TAB.SR.24H PO SCH (10:52)
[2022-07-30] MEDS: ENOXAPARIN SODIUM 40 MG/0.4 ML DISP.SYRIN SQ SCH (10:53)
[2022-07-30] MEDS: ONDANSETRON HCL/PF 4 MG/2 ML VIAL IVP PRN (11:24)
--- NOTE | 2022-07-30 13:51 | NUR ---
RN NOTE PARKER FROM [facility], SHE IS THE REGIONAL ESCALATOR MECHANIC, FAX # , REQUESTED TO SEND HER THE FACE SHEET, MED LIST, AND H/P VIA FAX ONCE PT IS DISCHARGE AND BEFORE PT TRANSFER TO FACILITY. WILL ENDORSE TO NEXT SHIFT. CHARGE NURSE AWARE.
[2022-07-30 16:00] VITALS: BP 110/60
--- NOTE | 2022-07-30 18:29 | NUR ---
RN CLOSING NOTE PATIENT AWAKE ON BED A/O X3, ON ROOM AIR WITH NO SOB OR SIGNS OF RESPIRATORY DISTRESS. NO S/S OF PAIN AT THIS TIME. WITH IV ACCES ON RIGHT HAND #22G WITH SL. SCHEDULED MEDICATION GIVEN. PATIENT REFUSED SKIN CARE AND BED BATH. ALL NEEDS ARE ATTENDED AND ANTICIPATED.SAFETY MEASURE IN PLACE, BED IN LOWER LOCKED POSITION, SIDE RAILS UP X2, CALL LIGHT WITHIN REACH. WILL ENDORSE TO NIGHT NURSE.
--- NOTE | 2022-07-30 19:33 | NUR ---
MS RN OPENING NOTES - RECEIVED PATIENT IN BED WATCHING TV. A/O X3, UNKEMPT AND MALODOROUS. BREATHING EVEN AND NON-LABORED ON ROOM AIR. NO C/O PAIN OR DISCOMFORT AT THIS TIME. HAS RIGHT HAND IV ACCESS #22G AND SALINE LOCKED. NO S/S OF INFILTRATION NOTED. SAFETY PRECAUTIONS IN PLACE: BED LOCKED AND IN LOW POSITION, SIDE RAILS UP X2, CALL LIGHT WITHIN REACH. WILL CONTINUE PLAN OF CARE.
[2022-07-30 20:00] VITALS: BP 129/82
[2022-07-30] MEDS: ATORVASTATIN 40 MG TABLET PO SCH (21:16)
--- NOTE | 2022-07-31 06:45 | NUR ---
MS RN CLOSING NOTES - PATIENT IN BED, ABLE TO VERBALIZE NEEDS. STILL WEARING HIS SHIRT AND SWEATER THAT SMELLS, REFUSED TO CHANGE. EXPLAINED IMPORTANCE, STILL REFUSED. NO SOB OR NOTED. SATURATING WELL IN ROOM AIR. AFEBRILE. RIGHT HAND IV ACCESS INTACT. NO S/S OF WITHDRAWALS NOTED. ALL DUE MEDS GIVEN AND NEEDS ATTENDED. SAFETY PRECAUTIONS MAINTAINED. WILL ENDORSE TO AM RN FOR JACLYN.
[2022-07-31 07:00] VITALS: BP 125/82
[2022-07-31] MEDS: ASPIRIN EC 81 MG TABLET.DR PO SCH (08:16)
[2022-07-31] MEDS: DOCUSATE SODIUM 100 MG CAPSULE PO SCH (08:16)
[2022-07-31] MEDS: THIAMINE HCL 100 MG TABLET PO SCH (08:16)
[2022-07-31] MEDS: TAMSULOSIN 0.4 MG CAP.SR.24H PO SCH (08:16)
[2022-07-31] MEDS: PANTOPRAZOLE 40 MG TABLET.DR PO SCH (08:17)
[2022-07-31] MEDS: NITROGLYCERIN 0.1 MG/HR PATCH.TD24 TD SCH (08:19)
[2022-07-31] MEDS: ENOXAPARIN SODIUM 40 MG/0.4 ML DISP.SYRIN SQ SCH (11:46)
[2022-07-31 11:50] VITALS: BP 125/82
[2022-07-31] MEDS: METOPROLOL SUCCINATE 50 MG TAB.SR.24H PO SCH (11:50)
--- NOTE | 2022-07-31 15:30 | NUR ---
REHABILITATION TEACHER NOTE PATIENT DISCHARGE IN STABLE IN MEDICAL CONDITION, A/O X4. V/S TAKEN, STABLE AND RECORDED. NO IV ACCESS, IV REMOVED. NAME ARM BAND REMOVED. SKIN ASSESSMENT DONE, SKIN INTACT. ALL BELONGINGS CHECKED AND BELONGING LIST SIGNED.HEALTH TEACHING AND HEALTH INSTRUCTIONS GIVEN AND VERBALIZED UNDERSTANDING.DISCUSSED PRESCRIPTION WITH THE PATIENT AND NURSE AT THE SNF, TMS GIVEN.INSTRUCTED PT IN CASE OF EMERGENCY CALL 911 OR GO TO NEAREST ER.REPORT GIVEN TO VISHAL SUTHERLAND AT [facility]. PATIENT LEFT UNIT VIA GURNEY WITH NO SIGNS OF DISTRESS, ACCOMPANIED BY EMT, LEFT HOSPITAL VIA AMBULANCE. CHARGE NURSE AWARE OF DISCHARGE.
== END 2022-07-31 15:25 | DRG 205 ==
LOC: ER 08:34 → TELE 10:34 → MED 07-29 12:21
PROVIDERS: ADMIT Nurse Practitioner Acute Care; ATTEND Internal Medicine
DX: M94.0 Chondrocostal junction syndrome [Tietze] (principal); N17.0 Acute kidney failure with tubular necrosis; E87.29 Other acidosis; J98.11 Atelectasis; F10.129 Alcohol abuse with intoxication, unspecified; Y90.2 Blood alcohol level of 40-59 mg/100 ml; E78.5 Hyperlipidemia, unspecified; E87.5 Hyperkalemia; Z86.73 Personal history of transient ischemic attack (TIA), and cerebral infarction without residual deficits; Z20.822 Contact with and (suspected) exposure to COVID-19; I10 Essential (primary) hypertension; K21.9 Gastro-esophageal reflux disease without esophagitis
CPT/HCPCS: 36415; 71045-TC; 80048-TC; 80053-TC; 80061-TC; 80076-TC; 81001; 83690-TC; 83735-TC; 83880; 84100-TC; 84443-TC; 84484-TC; 85025-TC; 87081-TC; 93307-TC; A4223; C9803; G0378; G0480; J1650; J2405; J7040; J7120

== ENCOUNTER 2022-09-26 10:06 | Emergency (ER) | payer MEDICARE, OTHER ==
[~2022-09-26] VITALS: Ht 177.8 cm; Wt 81.6 kg
[~2022-09-26 10:06] MED LIST changes: -ASPI-1169 PO; +CEPH500C2 PO; +LORA-259 PO; +MYRBETRIQ PO; +ONDA4TAB5 PO; +TAMS-12 PO; +ZOLP5TAB2 PO
[2022-09-26] MEDS ORDERED: ONDANSETRON HCL/PF 4 MG/2 ML VIAL ONE (10:28)
[2022-09-26] MEDS ORDERED: FAMOTIDINE/PF INJ 20 MG/2 ML VIAL IV ONE ×2 (10:29→10:30)
[2022-09-26] MEDS ORDERED: IV NS 0.9% 1,000 ML BAG IV ONE (10:30)
[2022-09-26] MEDS ORDERED: ONDANSETRON HCL/PF 4 MG/2 ML VIAL IVP ONE (10:30)
[2022-09-26 10:47] LABS: CARBON DIOXIDE 29 mmol/L (21-32); CHLORIDE 97 mmol/L (98-107); CREATININE 0.9 mg/dL (0.6-1.3); GLUCOSE 108 mg/dL (74-106); POTASSIUM 4.2 mmol/L (3.5-5.1); SODIUM SERUM 136 mmol/L (136-145); UREA NITROGEN, BLOOD 14 mg/dL (7-18)
[2022-09-26 10:49] LABS: BASOPHILS % (AUTO) 0.3 % (0.0-2.0); EOSINOPHILS % (AUTO) 0.1 % (0.0-6.0); HEMATOCRIT 41 % (39-51); HEMOGLOBIN 13.6 g/dL (13.5-17.5); LYMPHOCYTES # (AUTO) 0.8 K/uL (0.8-4.8); LYMPHOCYTES % (AUTO) 9.6 % (20.0-44.0); MEAN CORPUSCULAR HEMOGLOBIN 29 PG (26.0-33.0); MEAN CORPUSCULAR HGB CONC 34 g/dl (31.0-36.0); MEAN CORPUSCULAR VOLUME 88 fL (80-96); MONOCYTES # (AUTO) 0.6 K/uL (0.1-1.30); MONOCYTES % (AUTO) 7.1 % (2.0-12.0); NEUTROPHILS # (AUTO) 7.3 K/uL (1.8-8.9); NEUTROPHILS % (AUTO) 82.9 % (43.0-81.0); PLATELET COUNT (AUTO) 254 K/uL (150-450); RED BLOOD CELL COUNT(AUTO) 4.64 MIL/uL (4.5-6.0); RED CELL DISTRIBUTION WIDTH 17.6 % (11.5-15.0); WHITE BLOOD COUNT (AUTO) 8.8 K/uL (4.3-11.0)
[2022-09-26 10:53] LABS: ALANINE AMINOTRANSFERASE 26 U/L (12-78); ALBUMIN 3.8 g/dL (3.4-5.0); ALKALINE PHOSPHATASE 65 U/L (46-116); ASPARTATE AMINOTRANSFERASE 29 U/L (15-37); BILIRUBIN,DIRECT 0.1 mg/dL (0.0-0.2); BILIRUBIN,TOTAL 0.6 mg/dL (0.2-1.0); LIPASE 135 U/L (73-393); TOTAL PROTEIN, SERUM 8.3 g/dL (6.4-8.2)
[2022-09-26 12:55] VITALS: BP 135/80; TEMP 100.3; O2SAT 98
== END 2022-09-26 12:52 ==
LOC: ER 10:16
DX: R10.84 Generalized abdominal pain (principal); I10 Essential (primary) hypertension; E78.5 Hyperlipidemia, unspecified; K21.9 Gastro-esophageal reflux disease without esophagitis; F17.200 Nicotine dependence, unspecified, uncomplicated; Z79.899 Other long term (current) drug therapy; Z86.73 Personal history of transient ischemic attack (TIA), and cerebral infarction without residual deficits
CPT/HCPCS: 99285; 74176; 96374; 71045; 96361; 96375; 93005; 85025; 80048; 83690; 80076; 36415; 84484; J3490; J2405; J7030

== ENCOUNTER 2022-10-20 23:46 | Emergency (ER) | payer MEDICARE, OTHER ==
[~2022-10-20] VITALS: Ht 180.3 cm; Wt 81.6 kg
[2022-10-21] MEDS ORDERED: MELO15TA13 PO (00:11)
[2022-10-21] MEDS ORDERED: KETOROLAC TROMETHAMINE INJ 60 MG/2 ML VIAL IM ONE ×2 (00:30→00:33)
[2022-10-21 01:57] VITALS: BP 121/77; TEMP 98.2; O2SAT 99
== END 2022-10-21 01:57 ==
LOC: ER 23:48
DX: M25.561 Pain in right knee (principal); I10 Essential (primary) hypertension; E78.5 Hyperlipidemia, unspecified; K21.9 Gastro-esophageal reflux disease without esophagitis; F17.200 Nicotine dependence, unspecified, uncomplicated; Z79.899 Other long term (current) drug therapy
CPT/HCPCS: 99283; 96372; J1885

== ENCOUNTER 2022-10-23 19:32 | Emergency (ER) | payer MEDICARE, OTHER ==
[~2022-10-23] VITALS: Ht 180.3 cm; Wt 81.6 kg
[~2022-10-23 19:32] MED LIST changes: +MELO15TA13 PO
[2022-10-23 19:45] VITALS: BP 132/79; TEMP 98; O2SAT 94
[2022-10-23] MEDS ORDERED: ACETAMINOPHEN 325 MG TABLET ONE (20:41)
[2022-10-23] MEDS ORDERED: KETOROLAC TROMETHAMINE 15 MG/ML VIAL ONE (20:41)
[2022-10-23] MEDS: KETOROLAC TROMETHAMINE INJ 30 MG/ML VIAL IM ONE (20:52)
[2022-10-23] MEDS: ACETAMINOPHEN 325 MG TABLET PO ONE (20:52)
== END 2022-10-23 21:43 | disposition home or self-care (01) ==
LOC: ER 19:44
DX: M25.561 Pain in right knee (principal); I10 Essential (primary) hypertension; E78.5 Hyperlipidemia, unspecified; K21.9 Gastro-esophageal reflux disease without esophagitis; F17.200 Nicotine dependence, unspecified, uncomplicated; Z79.899 Other long term (current) drug therapy
CPT/HCPCS: 99283; 99406; 96372; J1885

== ENCOUNTER 2023-01-16 07:37 | Emergency (ER) | payer MEDICARE, OTHER ==
[~2023-01-16] VITALS: Ht 180.3 cm; Wt 83.5 kg
[2023-01-16 08:10] LABS: BASOPHILS % (AUTO) 0.4 % (0.0-2.0); EOSINOPHILS # (AUTO) 0.2 K/uL (0.0-0.7); EOSINOPHILS % (AUTO) 3.4 % (0.0-6.0); HEMATOCRIT 37 % (39-51); HEMOGLOBIN 11.7 g/dL (13.5-17.5); LYMPHOCYTES # (AUTO) 1.3 K/uL (0.8-4.8); LYMPHOCYTES % (AUTO) 18.2 % (20.0-44.0); MEAN CORPUSCULAR HEMOGLOBIN 27 PG (26.0-33.0); MEAN CORPUSCULAR HGB CONC 31 g/dl (31.0-36.0); MEAN CORPUSCULAR VOLUME 87 fL (80-96); MONOCYTES # (AUTO) 0.7 K/uL (0.1-1.30); MONOCYTES % (AUTO) 9.3 % (2.0-12.0); NEUTROPHILS % (AUTO) 68.7 % (43.0-81.0); PLATELET COUNT (AUTO) 255 K/uL (150-450); RED BLOOD CELL COUNT(AUTO) 4.27 MIL/uL (4.5-6.0); RED CELL DISTRIBUTION WIDTH 17.2 % (11.5-15.0); WHITE BLOOD COUNT (AUTO) 7.2 K/uL (4.3-11.0)
[2023-01-16 08:21] LABS: CALCIUM, SERUM 8.5 mg/dL (8.5-10.1); CREATININE 1.1 mg/dL (0.6-1.3); POTASSIUM 4.2 mmol/L (3.5-5.1)
[2023-01-16 08:26] LABS: ALBUMIN 3.1 g/dL (3.4-5.0); BILIRUBIN,DIRECT 0.1 mg/dL (0.0-0.2); BILIRUBIN,TOTAL 0.3 mg/dL (0.2-1.0); TOTAL PROTEIN, SERUM 6.7 g/dL (6.4-8.2)
[2023-01-16] MEDS ORDERED: BISA-79 PO (10:17)
[2023-01-16] MEDS ORDERED: POLYETHYLENE GLYCOL 3350 17 GM POWD.PACK PO ONE (10:30)
[2023-01-16 11:12] VITALS: BP 135/87; TEMP 98.7; O2SAT 100
== END 2023-01-16 11:14 ==
LOC: ER 07:37
DX: K59.00 Constipation, unspecified (principal); R10.84 Generalized abdominal pain; I10 Essential (primary) hypertension; E78.5 Hyperlipidemia, unspecified; K21.9 Gastro-esophageal reflux disease without esophagitis; F17.200 Nicotine dependence, unspecified, uncomplicated; Z79.899 Other long term (current) drug therapy
CPT/HCPCS: 99284; 74176; 85025; 80048; 83690; 80076; 36415; J7030

== ENCOUNTER 2023-02-01 08:12 | Emergency (ER) | payer MEDICARE ==
[~2023-02-01] VITALS: Ht 172.7 cm; Wt 77.1 kg
[~2023-02-01 08:12] MED LIST changes: +BISA-79 PO
[2023-02-01] MEDS ORDERED: ACETAMINOPHEN ES 500 MG TABLET PO ONE (08:30)
[2023-02-01] MEDS ORDERED: ACETAMINOPHEN ES 500 MG TABLET ONE (08:43)
[2023-02-01 08:52] LABS: BASOPHILS % (AUTO) 0.3 % (0.0-2.0); EOSINOPHILS % (AUTO) 0.6 % (0.0-6.0); HEMATOCRIT 38 % (39-51); HEMOGLOBIN 11.9 g/dL (13.5-17.5); LYMPHOCYTES # (AUTO) 0.8 K/uL (0.8-4.8); MEAN CORPUSCULAR HEMOGLOBIN 26 PG (26.0-33.0); MEAN CORPUSCULAR HGB CONC 31 g/dl (31.0-36.0); MEAN CORPUSCULAR VOLUME 85 fL (80-96); MONOCYTES # (AUTO) 0.6 K/uL (0.1-1.30); MONOCYTES % (AUTO) 8.3 % (2.0-12.0); NEUTROPHILS # (AUTO) 5.5 K/uL (1.8-8.9); NEUTROPHILS % (AUTO) 78.8 % (43.0-81.0); PLATELET COUNT (AUTO) 221 K/uL (150-450); RED CELL DISTRIBUTION WIDTH 16.6 % (11.5-15.0)
[2023-02-01 09:16] LABS: CALCIUM, SERUM 8.9 mg/dL (8.5-10.1); CREATININE 1.1 mg/dL (0.6-1.3); POTASSIUM 4.7 mmol/L (3.5-5.1)
[2023-02-01 09:17] LABS: ALBUMIN 3.7 g/dL (3.4-5.0); BILIRUBIN,DIRECT 0.2 mg/dL (0.0-0.2); BILIRUBIN,TOTAL 0.6 mg/dL (0.2-1.0); TOTAL PROTEIN, SERUM 7.8 g/dL (6.4-8.2)
[2023-02-01] MEDS ORDERED: ONDANSETRON 4 MG TAB.RAPDIS ONE (11:13)
[2023-02-01] MEDS ORDERED: ONDANSETRON 4 MG TAB.RAPDIS SL ONE (11:30)
[2023-02-01 13:04] VITALS: BP 156/83; TEMP 98.2; O2SAT 92
== END 2023-02-01 13:04 ==
LOC: ER 08:12
DX: M79.605 Pain in left leg (principal); M79.604 Pain in right leg; I10 Essential (primary) hypertension; E78.5 Hyperlipidemia, unspecified; K21.9 Gastro-esophageal reflux disease without esophagitis; Z79.899 Other long term (current) drug therapy
CPT/HCPCS: 99285; 72192; 71045; 73552 ×2; 73590 ×2; 85025; 80048; 80076; 36415; Q0162